=== PATIENT | female | born 1955 | race Caucasian/White ===

== ENCOUNTER 2017-08-26 08:27 | Inpatient (IN) | payer OTHER ==
[~2017-08-26] VITALS: Ht 157.5 cm; Wt 54.0 kg
[2017-08-26 08:29] VITALS: BP 131/65; PULSE 98; RESP 16; TEMP 99.7; O2SAT 97
[2017-08-26] MEDS ORDERED: ACCU20TA3 PO (08:47)
[2017-08-26] MEDS ORDERED: NAPR500T PO (08:47)
[2017-08-26] MEDS ORDERED: SODIUM CHLOR 0.9% 1000 ML INJ 1,000 ML IV SCH (08:59)
[2017-08-26] MEDS ORDERED: ONDANSETRON HCL 4 MG/2 ML VIAL IVP ONE (09:00)
[2017-08-26] MEDS ORDERED: MORPHINE SULFATE 4 MG/ML INJ IV PUSH ONE (09:00)
[2017-08-26 09:14] LABS: AUTOMATED NEUTROPHIL # 11.1 TH/MM3 (1.8-7.7); BASOPHIL % 0.2 % (0.0-2.0); BLOOD, URINE SMALL (NEG); EOSINOPHIL % 0.2 % (0.0-4.0); GLUCOSE,URINE NEG (NEG); HEMATOCRIT 41.6 % (35.0-46.0); HEMO FLAGS DIFF FINAL; KETONE, URINE 15 mg/dL (NEG); LYMPH % 6.1 % (9.0-44.0); LYMPHOCYTE # 0.8 TH/MM3 (1.0-4.8); MEAN CELL VOLUME 93.4 FL (80.0-100.0); MEAN CORPUSCULAR HEMOGLOBIN 31.6 PG (27.0-34.0); MEAN CORPUSCULAR HGB CONC 33.8 % (32.0-36.0); MONO % 8.1 % (0.0-8.0); NEUT % 85.4 % (16.0-70.0); NITRITE,URINE NEG (NEG); PH, URINE 5.5 (5.0-8.5); PLATELET COUNT 275 TH/MM3 (150-450); RED BLOOD COUNT 4.46 MIL/MM3 (4.00-5.30)
[2017-08-26 09:16] VITALS: O2SAT 97
[2017-08-26] MEDS ORDERED: DIATRIZOATE MEGLUM/DIATRIZOATE SOD 9 ML CUP ONE (09:17)
[2017-08-26 09:26] LABS: METHOD OF COLLECTION CLEAN CATCH; URINE COLOR YELLOW (YELLW/STRAW)
[2017-08-26 09:27] LABS: BACTERIA, URINE MOD /hpf; COMMENT (UR) CULTURE INDICATED; CULTURE IF INDICATED CULTURE INDICATED; HYALINE CAST, URINE 0-2 /lpf (RARE); SQUAMOUS EPITHELIAL CELL URINE > 8 /hpf (0-5); WBC, URINE 0-2 /hpf (0-5)
[2017-08-26 09:33] LABS: BLOOD UREA NITROGEN 17 MG/DL (7-18); GLOMERULAR FILTRATION RATE 56 ML/MIN (>89)
[2017-08-26 09:34] LABS: CHLORIDE 96 MEQ/L (98-107); POTASSIUM 3.6 MEQ/L (3.5-5.1); SODIUM (NA) 134 MEQ/L (136-145)
--- NOTE | 2017-08-26 09:44 | PD ---
HPI Chief Complaint: GI Complaint Time Seen by Provider: 08:48 Travel History International Travel<30 days: No Contact w/Intl Traveler<30days: No Traveled to known affect area: No History of Present Illness HPI This 62 year-old woman presents emergency Department with abdominal pain. She was well until yesterday when she began getting nonspecific epigastric abdominal pain and feeling a little bit unwell. She then has had multiple episodes of vomiting. Wasn't really sleep well last night because of throwing up and feeling sick. Abdominal pain has gotten worse as well. Last bowel movement was a couple days ago. She has a small bowel movement today. She thought she may have been constipated. Subjective fevers and chills. No urinary symptoms. No rash. Otherwise feeling well and healthy. She's had a hysterectomy with the incidental appendectomy with it, but no other abdominal surgeries. No sick contacts, recent antibiotic or healthcare exposures, or suspect foods. No travel. History Past Medical History Narrative Medical Arthritis, on plaquenil and Naprosyn Tetanus Vaccination: > 5 Years Influenza Vaccination: Yes Social History Alcohol Use: Yes (SOCIAL) Tobacco Use: Yes (11/16 PPD) Allergies-Medications (Allergen,Severity, Reaction): Coded Allergies: nitrofurantoin (Verified Allergy, Severe, rash, 08/26/17) Reported Meds & Prescriptions Reported Meds & Active Scripts Active Reported Accupril (Quinapril HCl) 20 Mg Tab 20 Mg PO DAILY Naproxen 500 Mg Tab 500 Mg PO BID Review of Systems Except as stated in HPI: all other systems reviewed are Neg Physical Exam Narrative GENERAL: This a 62 year-old woman, no acute distress. SKIN: Focused skin assessment warm/dry. HEAD: Atraumatic. Normocephalic. CARDIOVASCULAR: Regular rate and rhythm. No murmur appreciated. RESPIRATORY: No accessory muscle use. Clear to auscultation. Breath sounds equal bilaterally. GASTROINTESTINAL: Abdomen is flat and soft. She is minimal epigastric tenderness but fairly moderate left-sided tenderness with a little bit of voluntary guarding. No peritonitis. MUSCULOSKELETAL: No obvious deformities. No edema. NEUROLOGICAL: Awake and alert. No obvious cranial nerve deficits. Motor grossly within normal limits. Normal speech. Data Data Last Documented VS Vital Signs Date Time Temp Pulse Resp B/P (MAP) Pulse Ox O2 Delivery O2 Flow Rate FiO2 08/26/17 11:02 91 16 125/65 (85) 96 Room Air 08/26/17 08:29 99.7 Orders Orders Complete Blood Count With Diff (08/26/17 08:59) Comprehensive Metabolic Panel (08/26/17 08:59) Lipase (08/26/17 08:59) Urinalysis - C+S If Indicated (08/26/17 08:59) Ct Abd/Pel W Iv Contrast(Rout) (08/26/17 08:59) Iv Access Insert/Monitor (08/26/17 08:59) Oximetry (08/26/17 08:59) Morphine Inj (Morphine Inj) (08/26/17 09:00) Ondansetron Inj (Zofran Inj) (08/26/17 09:00) Sodium Chlor 0.9% 1000 Ml Inj (Ns 1000 M (08/26/17 08:59) Sodium Chloride 0.9% Flush (Ns Flush) (08/26/17 09:00) Oral Contrast - Adult (08/26/17 09:08) Diatrizoate Liq ( Gastroview Liq) (08/26/17 09:17) Urine Culture (08/26/17 09:05) Iohexol 350 Inj (Omnipaque 350 Inj) (08/26/17 10:20) Insert Ng Tube (08/26/17 10:47) Admit Order (Ed Use Only) (08/26/17 ) Vital Signs (Adult) Q4H (08/26/17 11:03) Diet Npo (08/26/17 Lunch) Activity Oob With Assistance (08/26/17 11:03) Notify Dr: Other (08/26/17 11:03) Labs Laboratory Tests Test 08/26/17 09:05 White Blood Count 13.0 TH/MM3 Red Blood Count 4.46 MIL/MM3 Hemoglobin 14.1 GM/DL Hematocrit 41.6 % Mean Corpuscular Volume 93.4 FL Mean Corpuscular Hemoglobin 31.6 PG Mean Corpuscular Hemoglobin Concent 33.8 % Red Cell Distribution Width 13.0 % Platelet Count 275 TH/MM3 Mean Platelet Volume 6.9 FL Neutrophils (%) (Auto) 85.4 % Lymphocytes (%) (Auto) 6.1 % Monocytes (%) (Auto) 8.1 % Eosinophils (%) (Auto) 0.2 % Basophils (%) (Auto) 0.2 % Neutrophils # (Auto) 11.1 TH/MM3 Lymphocytes # (Auto) 0.8 TH/MM3 Monocytes # (Auto) 1.1 TH/MM3 Eosinophils # (Auto) 0.0 TH/MM3 Basophils # (Auto) 0.0 TH/MM3 CBC Comment DIFF FINAL Differential Comment Urine Collection Type CLEAN CATCH Urine Color YELLOW Urine Turbidity SLIGHT Urine pH 5.5 Urine Specific [place] 1.027 Urine Protein 30 mg/dL Urine Glucose (UA) NEG mg/dL Urine Ketones 15 mg/dL Urine Occult Blood SMALL Urine Nitrite NEG Urine Bilirubin NEG Urine Leukocyte Esterase NEG Urine RBC 4-9 /hpf Urine WBC 0-2 /hpf Urine Squamous Epithelial Cells > 8 /hpf Urine Amorphous Sediment MOD Urine Bacteria MOD /hpf Urine Hyaline Casts 0-2 /lpf Urine Fine Granular Casts 0-2 /lpf Microscopic Urinalysis Comment CULTURE INDICATED Urine Collection Time 0905 Blood Urea Nitrogen 17 MG/DL Creatinine 1.00 MG/DL Random Glucose 110 MG/DL Total Protein 8.1 GM/DL Albumin 4.5 GM/DL Calcium Level 9.1 MG/DL Alkaline Phosphatase 52 U/L Aspartate Amino Transf (AST/SGOT) 26 U/L Alanine Aminotransferase (ALT/SGPT) 25 U/L Total Bilirubin 0.7 MG/DL Sodium Level 134 MEQ/L Potassium Level 3.6 MEQ/L Chloride Level 96 MEQ/L Carbon Dioxide Level 27.1 MEQ/L Anion Gap 11 MEQ/L Estimat Glomerular Filtration Rate 56 ML/MIN Lipase 163 U/L [facility] Medical Decision Making Medical Screen Exam Complete: Yes Emergency Medical Condition: Yes Interpretation(s) LABS: CBC mild leukocytosis CMP generally unremarkable. Lipase normal. UA unremarkable. Differential Diagnosis Diverticulitis, gastritis, infectious gastroenteritis, hepatobiliary disease, other Narrative Course Medical decision making This Is a 62 year-old woman presents to the emergency department with abdominal pain, nausea vomiting, with left-sided tenderness. She is a lot of vomiting and not much stool changes likely think she probably has diverticulitis. Gastritis seems less likely. I don't think she has hepatobiliary disease. We' ll check labs, CT imaging, urinalysis, reassess. FINAL: Patient was small bowel obstruction distal transition point. Spoke with Dr. Bower, Gen. surgery. He agrees with NG tube, admission to medicine. Diagnosis Primary Impression: Small bowel obstruction Nagi Stock MD Aug 26, 2017 09:44
[2017-08-26 10:02] LABS: ANION GAP 11 MEQ/L (5-15); BICARBONATE 27.1 MEQ/L (21.0-32.0)
[2017-08-26 10:05] LABS: ALT (GPT) 25 U/L (10-53); AST (GOT) 26 U/L (15-37)
[2017-08-26 10:07] LABS: TOTAL BILIRUBIN ADULT 0.7 MG/DL (0.2-1.0)
[2017-08-26 10:08] LABS: ALKALINE PHOSPHATASE 52 U/L (45-117)
[2017-08-26] MEDS ORDERED: IOHEXOL 350 MG/ML 10 ML VIAL (for RAD DIAG) IVCONTRAST ONE (10:20)
--- NOTE | 2017-08-26 10:44 | RADRPT ---
EXAM DATE/TIME: 08/26/2017 10:12 [facility] COMPARISON: No previous studies available for comparison. INDICATIONS : Abdominal pain and vomiting. IV CONTRAST: 96 cc Omnipaque 350 (iohexol) IV ORAL CONTRAST: Partial prescribed oral contrast ingested. RADIATION DOSE: 6.63 CTDIvol (mGy) MEDICAL HISTORY : None SURGICAL HISTORY : Hysterectomy. Appendectomy.Tonsillectomy. ENCOUNTER: Initial ACUITY: 2 days PAIN SCALE: 8/10 LOCATION: Bilateral mid abdomen. TECHNIQUE: Volumetric scanning of the abdomen and pelvis was performed. Using automated exposure control and ad justment of the mA and/or kV according to patient size, radiation dose was kept as low as reasonably achievable to obtain optimal diagnostic quality images. DICOM format image data is available electro nically for review and comparison. FINDINGS: LOWER LUNGS: The visualized lower lungs are clear. LIVER: Homogeneous density without lesion. There is no dilation of the biliary tree. No calcified gall[place] es. SPLEEN: Normal size without lesion. PANCREAS: Within normal limits. KIDNEYS: Normal in size and shape. There is no mass, stone or hydronephrosis. ADRENAL GLANDS: Within normal limits. VASCULAR: There is no aortic aneurysm. BOWEL/MESENTERY: There are multiple distended loops of small bowel throughout the abdomen. The distal small bowel the terminal ileum is nondilated. The colon is nondilated. There is stool throughout the colon. No free f luid or loculated fluid collections are demonstrated. These findings suggest a distal small bowel obs truction. ABDOMINAL WALL: Within normal limits. RETROPERITONEUM: There is no lymphadenopathy. BLADDER: No wall thickening or mass. REPRODUCTIVE: Within normal limits. INGUINAL: There is no lymphadenopathy or hernia. MUSCULOSKELETAL: Within normal limits for patient age. CONCLUSION: Multiple distended loops of small bowel throughout the abdomen with a transition zone in the distal s mall bowel near the terminal ileum. These findings indicate a distal small bowel obstruction. Ivan Yee MD on August 26, 2017 at 10:39 Board Certified Radiologist. This report was verified electronically.
[2017-08-26 11:02] VITALS: BP 125/65; PULSE 91; RESP 16; O2SAT 96
[2017-08-26 11:50] VITALS: BP 137/73; PULSE 88; RESP 20; TEMP 100.4; O2SAT 98
[2017-08-26] MEDS: NS + KCL 20 MEQ INJ 1,000 ML IV SCH ×2 (13:37→23:30)
--- NOTE | 2017-08-26 14:00 | HHI.HP ---
[facility] Darwin Poon MD Admission Diagnosis small bowel obstruction Diagnoses: (1) Systemic inflammatory response syndrome Diagnosis: Principal (2) Small bowel obstruction Diagnosis: Principal Chief Complaint: Abdominal pain Travel History International Travel<30 Days: No Contact w/Intl Traveler <30 Da: No Traveled to Known Affected Are: No Sepsis Criteria SIRS Criteria (2 or more): Heart rate over 90, WBC > 92124, < 4000 or > 10% bands History of Present Illness Written by Willy Snider, acting as scribe for Dr. Soto on 08/26/17 at 13: 50. 62-year-old female with known history of arthritis who presented to hospital because of abdominal pain, nausea vomiting. Patient states that she was in normal state of health with her chronic issues of intermittent constipation. She states it has been worse over the last 2 weeks with worsening constipation. She did take a Dulcolax yesterday. Yesterday approximately at 11:30 AM she started developing abdominal pain in the mid abdomen, she did have lunch that consisted of lettuce and some grapes. She states that the pain progressively got worse up until 4 PM when she started having nausea and vomiting. She states that she was unable to eat anything after that. However continued drinking water. She states that the only thing that she was vomiting up with yellow clear fluid. the pain started at 11:30 AM at 2/10 on a pain scale and by the evening the pain was 9/10 on a pain scale. The pain initially started in the mid abdomen but continued to go higher up until it was in the epigastric region. She started having abdominal distention this morning. She states that she continued to have vomiting throughout the evening in because she could not stop she came to the hospital for evaluation. Patient states that she did have a fever of 99.8. There was significant dizziness whenever she stood removed. She denied any hematemesis, coffee- ground emesis. Patient states that she did have a bowel movement last night which was solid. She denied any hematochezia or melena. Patient came to the hospital for evaluation had CT scan performed which did indicate small bowel obstruction. Patient was recommended admission for further evaluation and management. Review of Systems Gastrointestinal: COMPLAINS OF: Abdominal pain, Constipation, Nausea, Vomiting Except as stated in HPI: all other systems reviewed are Neg Past Family Social History Past Medical History Arthritis Past Surgical History Hysterectomy Appendectomy Tonsillectomy Reported Medications Reported Meds & Active Scripts Active Reported Accupril (Quinapril HCl) 20 Mg Tab 20 Mg PO DAILY Naproxen 500 Mg Tab 500 Mg PO BID Allergies: Coded Allergies: nitrofurantoin (Verified Allergy, Severe, rash, 08/26/17) Family History Reviewed and significant for father with TB, mother from embolism Social History Patient continues to smoke a proctoscopy 5 cigarettes daily since she was 32 years old. She does drink alcohol occasionally. Denies any illicit drugs Physical Exam Vital Signs Vital Signs Date Time Temp Pulse Resp B/P (MAP) Pulse Ox O2 Delivery O2 Flow Rate FiO2 08/26/17 11:50 100.4 88 20 137/73 (94) 98 08/26/17 11:48 08/26/17 11:02 91 16 125/65 (85) 96 Room Air 08/26/17 09:16 97 Room Air 08/26/17 08:29 99.7 98 16 131/65 (87) 97 Physical Exam GENERAL: Well-developed, well-nourished, in no acute distress. alert and orientated HEENT: Head is normocephalic without any lesions or masses noted. Facial features are symmetric. Eyes: Pupils equal round reactive to light. Extraocular muscles are intact. Conjunctivae were clear. Oropharyngeal: Pharynx without any erythema edema. Tongue is midline without deviation. Buccal mucosa is moist without any masses or lesions. NG tube noted with clear yellow fluid NECK: Supple without any masses. Trachea midline no deviation. No JVD, no bruits are appreciated CARDIAC: Regular rhythm, regular rate. S1/S2 are heard. No murmurs gallops or rubs. LUNGS: Clear to auscultation bilaterally. No wheeze, rhonchi or rales. No use of accessory muscles on inspiration or expiration. ABDOMEN: Soft, nontender. Nondistended. Diminished bowel sounds in all 4 quadrants. No organomegaly or masses. Negative rebound, negative guarding EXTREMITIES: No edema, pulses are equal bilaterally. No cyanosis or clubbing NEUROLOGY: Mood and affect appear appropriate. Cranial nerves II through XII grossly intact. Muscle strength 5/5 in upper and lower extremities bilaterally. Deep tendon reflexes are 2+ in upper and lower extremities bilaterally. Laboratory Laboratory Tests Test 08/26/17 09:05 White Blood Count 13.0 Red Blood Count 4.46 Hemoglobin 14.1 Hematocrit 41.6 Mean Corpuscular Volume 93.4 Mean Corpuscular Hemoglobin 31.6 Mean Corpuscular Hemoglobin Concent 33.8 Red Cell Distribution Width 13.0 Platelet Count 275 Mean Platelet Volume 6.9 Neutrophils (%) (Auto) 85.4 Lymphocytes (%) (Auto) 6.1 Monocytes (%) (Auto) 8.1 Eosinophils (%) (Auto) 0.2 Basophils (%) (Auto) 0.2 Neutrophils # (Auto) 11.1 Lymphocytes # (Auto) 0.8 Monocytes # (Auto) 1.1 Eosinophils # (Auto) 0.0 Basophils # (Auto) 0.0 CBC Comment DIFF FINAL Differential Comment Urine Collection Type CLEAN CATCH Urine Color YELLOW Urine Turbidity SLIGHT Urine pH 5.5 Urine Specific [place] 1.027 Urine Protein 30 Urine Glucose (UA) NEG Urine Ketones 15 Urine Occult Blood SMALL Urine Nitrite NEG Urine Bilirubin NEG Urine Leukocyte Esterase NEG Urine RBC 4-9 Urine WBC 0-2 Urine Squamous Epithelial Cells > 8 Urine Amorphous Sediment MOD Urine Bacteria MOD Urine Hyaline Casts 0-2 Urine Fine Granular Casts 0-2 Microscopic Urinalysis Comment CULTURE INDICATED Urine Collection Time 0905 Blood Urea Nitrogen 17 Creatinine 1.00 Random Glucose 110 Total Protein 8.1 Albumin 4.5 Calcium Level 9.1 Alkaline Phosphatase 52 Aspartate Amino Transf (AST/SGOT) 26 Alanine Aminotransferase (ALT/SGPT) 25 Total Bilirubin 0.7 Sodium Level 134 Potassium Level 3.6 Chloride Level 96 Carbon Dioxide Level 27.1 Anion Gap 11 Estimat Glomerular Filtration Rate 56 Lipase 163 Date/Time Source Procedure Growth Status 08/26/17 09:05 Urine Clean Catch Urine Culture Pending Received Result Diagram: 08/26/1790408/26/17 09 Imaging Last Impressions Abdomen/Pelvis CT 08/26/17 0859 Signed Impressions: Service Date/Time: Saturday, August 26, 2017 10:12 - CONCLUSION: Multiple distended loops of small bowel throughout the abdomen with a transition zone in the distal small bowel near the terminal ileum. These findings indicate a distal small bowel obstruction. vIan Yee MD Capade VTE Risk Assessment Caprini VTE Risk Assessment: Mod/High Risk (score >= 2) Caprini Risk Assessment Model Point Value = 1 Point Value = 2 Point Value = 3 Point Value = 5 Age 41-60 Minor surgery BMI > 25 kg/m2 Swollen legs Varicose veins or History of unexplained or recurrent spontaneous Oral contraceptives or hormone replacement Sepsis (< 1 month) Serious lung disease, including pneumonia (< 1 month) Abnormal pulmonary function Acute myocardial infarction Congestive heart failure (< 1 month) History of inflammatory bowel disease Medical patient at bed rest Age 61-74 Arthroscopic surgery Major open surgery (> 45 min) Laparoscopic surgery (> 45 min) Malignancy Confined to bed (> 72 hours) Immobilizing plaster cast Central venous access Age >= 75 History of VTE Family history of VTE Factor V Leiden Prothrombin [id number] Lupus anticoagulant Anticardiolipin antibodies Elevated serum homocysteine Heparin-induced thrombocytopenia Other congenital or acquired thrombophilia Stroke (< 1 month) Elective arthroplasty Hip, pelvis, or leg fracture Acute spinal cord injury (< 1 month) Prophylaxis Regimen Total Risk Factor Score Risk Level Prophylaxis Regimen 0-1 Low Early ambulation 2 Moderate Order ONE of the following: *Sequential Compression Device (SCD) *Heparin 5000 units SQ BID 3-4 Higher Order ONE of the following medications: *Heparin 5000 units SQ TID *Enoxaparin/Lovenox 40 mg SQ daily (WT < 150 kg, CrCl > 30 mL/min) *Enoxaparin/Lovenox 30 mg SQ daily (WT < 150 kg, CrCl > 10-29 mL/min) *Enoxaparin/Lovenox 30 mg SQ BID (WT < 150 kg, CrCl > 30 mL/min) AND/OR *Sequential Compression Device (SCD) 5 or more Highest Order ONE of the following medications: *Heparin 5000 units SQ TID (Preferred with Epidurals) *Enoxaparin/Lovenox 40 mg SQ daily (WT < 150 kg, CrCl > 30 mL/min) *Enoxaparin/Lovenox 30 mg SQ daily (WT < 150 kg, CrCl > 10-29 mL/min) *Enoxaparin/Lovenox 30 mg SQ BID (WT < 150 kg, CrCl > 30 mL/min) AND *Sequential Compression Device (SCD) Assessment and Plan Assessment and Plan Systemic inflammatory response syndrome Patient meets criteria with tachycardia, leukocytosis, likely secondary to small bowel obstruction Continue monitor for acute infection Small bowel obstruction CT scan does show multiple distended loops of small bowel throughout the abdomen with transition zone in the distal small bowel near the terminal ileum Keep nothing by mouth, continue IV fluids, pain control NG tube to low intermittent wall suction Follow KUB for resolution DVT prevention Sequential compression devices Physician Certification 2 Midnight Certification Type: Admission for Inpatient Services Order for Inpatient Services The services are ordered in accordance with Medicare regulations or non- Medicare payer requirements, as applicable. In the case of services not specified as inpatient-only, they are appropriately provided as inpatient services in accordance with the 2-midnight benchmark. Estimated LOS (days): 3 days is the estimated time the patient will need to remain in the hospital, assuming treatment plan goals are met and no additional complications. Post-Hospital Plan: Home Willy Snider Aug 26, 2017 14:00 Kimberly Soto MD Aug 26, 2017 14:01
[2017-08-26 15:43] VITALS: BP 142/67; PULSE 79; RESP 20; TEMP 99.8; O2SAT 96
[2017-08-26] MEDS: MORPHINE SULFATE 4 MG/ML INJ IV PUSH PRN (16:20)
[2017-08-26] MEDS: METOCLOPRAMIDE HCL 10 MG/2 ML VIAL IV PUSH SCH ×2 (18:00→23:30)
[2017-08-26 20:09] VITALS: BP 136/69; PULSE 92; RESP 12; TEMP 100.4; O2SAT 94
[2017-08-26] MEDS: ACETAMINOPHEN 650 MG SUPP RECTAL PRN (20:39)
[2017-08-26] MEDS ORDERED: FAMOTIDINE 20 MG/2 ML VIAL IV PUSH SCH (21:00)
[2017-08-27 00:19] VITALS: BP 130/70; PULSE 79; RESP 12; TEMP 99.6; O2SAT 93
[2017-08-27] MEDS: METOCLOPRAMIDE HCL 10 MG/2 ML VIAL IV PUSH SCH ×3 (05:52→17:39)
[2017-08-27 07:10] LABS: AUTOMATED NEUTROPHIL # 12.1 TH/MM3 (1.8-7.7); BASOPHIL % 0.1 % (0.0-2.0); HEMATOCRIT 38.4 % (35.0-46.0); HEMO FLAGS DIFF FINAL; LYMPH % 4.3 % (9.0-44.0); LYMPHOCYTE # 0.6 TH/MM3 (1.0-4.8); MEAN CORPUSCULAR HEMOGLOBIN 32.2 PG (27.0-34.0); MEAN CORPUSCULAR HGB CONC 34.6 % (32.0-36.0); NEUT % 87.6 % (16.0-70.0); PLATELET COUNT 237 TH/MM3 (150-450); RED BLOOD COUNT 4.13 MIL/MM3 (4.00-5.30); WHITE BLOOD COUNT 13.8 TH/MM3 (4.0-11.0)
[2017-08-27 07:11] LABS: POTASSIUM 4.1 MEQ/L (3.5-5.1)
[2017-08-27 07:16] LABS: BICARBONATE 26.2 MEQ/L (21.0-32.0)
[2017-08-27] MEDS: NS + KCL 20 MEQ INJ 1,000 ML IV SCH ×2 (07:41→20:08)
[2017-08-27 07:50] VITALS: BP 150/82; PULSE 81; RESP 20; TEMP 99.1; O2SAT 95
--- NOTE | 2017-08-27 08:18 | MB ---
cc: [facility] DATE OF CONSULTATION: 08/27/2017 REASON FOR CONSULTATION: Small bowel obstruction. REQUESTING PHYSICIAN: Dr. Soto. HISTORY OF PRESENT ILLNESS: The patient is a 62-year-old female who was admitted to [facility] with possible bowel obstruction. The patient states she was in her normal state of health but she developed increasing abdominal pain, nausea and vomiting over the last 24 hours. The patient says she has had some increasing constipation over the two weeks prior to this and when she took Dulcolax yesterday she had increasing abdominal pain and cramping. The patient states that she did pass gas with bowel movements three days ago. The patient was admitted. An NG tube was placed. CT scan was ordered and showed multiple loops of small bowel with possible transition point. Over the last several hours, the patient has had slight improvement in her pain and less NG tube output. The patient has never had previous bowel obstruction and her only previous surgery is open hysterectomy and oophorectomy through Pfannenstiel incision. REVIEW OF SYSTEMS: 12-point review of systems conducted with the patient and is negative except for the pertinent positives mentioned above in the history of present illness. PAST MEDICAL HISTORY: Arthritis. PAST SURGICAL HISTORY: Hysterectomy. Oophorectomy with appendectomy at the time of the hysterectomy. ALLERGIES: Nitrofurantoin HOME MEDICATIONS: 1. Accupril. 2. Naproxen. FAMILY HISTORY: Noncontributory. SOCIAL HISTORY: The patient does smoke approximately five cigarettes a day. She occasionally uses alcohol. She denies illicit drug use. PHYSICAL EXAMINATION: VITAL SIGNS: Temperature 100.4 degrees. Heart rate 92, blood pressure 136/69. O2 saturation 94%. GENERAL: The patient is a thin female in no acute distress. Head: Normocephalic, atraumatic. Pupils round and reactive to light and accommodation. Sclerae is anicteric. Oral cavity is clear. Airway is patent. Neck: Supple. No JVD. Lungs: Clear to auscultation bilaterally. Nonlabored breathing pattern. Heart: Regular rhythm. No murmurs. Abdomen: Shows hypoactive bowel sounds with mild distension. She is tympanic, Pfannenstiel incision, no hernias. No ascites, no organomegaly. No masses appreciated, some tenderness on the right side of the abdomen without focal peritonitis or guarding. Extremities: No clubbing, cyanosis or edema. Back: No CVA tenderness. Neurologic: The patient is awake, alert, oriented x3, moving all extremities. Cranial nerves II-XII are grossly intact. ASSESSMENT/PLAN The patient is a 62-year-old female with small bowel obstruction versus ileus. The patient likely does have a low grade small bowel obstruction due to previous pelvic surgery. The patient is clinically stable and I agree with nonoperative management, initially for small bowel obstruction. If the patient has decreasing pain and passage of flatus consistently with her current low NG tube output, she may be able to undergo discontinuation of her NG tube in about 12 to 24 hours with a trial of clear liquids. Will continue to follow this patient with serial physical exams. Thank you for the consultation. Will follow along with the patient. MD IVÁN Palm/MACHO /1:35 AM /7:57 AM
[2017-08-27] MEDS ORDERED: FAMOTIDINE 20 MG/2 ML VIAL IV PUSH SCH (09:00)
--- NOTE | 2017-08-27 10:42 | RADRPT ---
EXAM DATE/TIME: 08/27/2017 10:20 [facility] COMPARISON: CT ABDOMEN & PELVIS W CONTRAST, August 26, 2017, 10:12. INDICATIONS : Abdominal pain left side and tender to touch. MEDICAL HISTORY : None. SURGICAL HISTORY : Hysterectomy. Appendectomy.Tonsillectomy ENCOUNTER: Initial ACUITY: 2 days PAIN SCORE: 5/10 LOCATION: Left lower FINDINGS: Supine and upright views of the abdomen were performed. There is an NG tube in the stomach. There con tinue to be multiple distended loops of small bowel with air-fluid levels. No free air is seen. The c olon is nondilated. The lung bases are grossly clear. The bony structures are grossly intact.. CONCLUSION: 1. NG tube in the stomach. 2. There continues to be multiple dilated loops of small bowel with air-fluid levels characteristic o f a distal small bowel obstruction. Ivan Yee MD on August 27, 2017 at 10:39 Board Certified Radiologist. This report was verified electronically.
[2017-08-27 11:52] VITALS: BP 142/77; PULSE 76; RESP 20; TEMP 99.8; O2SAT 96
[2017-08-27 15:00] VITALS: BP 143/79; PULSE 85; RESP 20; TEMP 100; O2SAT 95
--- NOTE | 2017-08-27 17:30 | HHI.PR ---
Subjective Remarks No nausea or vomiting, abdominal discomfort 2 out of 10, NG tube suctioning 600 cc so far in the bucket Objective Vitals Vital Signs Date Time Temp Pulse Resp B/P (MAP) Pulse Ox O2 Delivery O2 Flow Rate FiO2 08/27/17 15:00 100.0 85 20 143/79 (100) 95 08/27/17 11:52 99.8 76 20 142/77 (98) 96 08/27/17 07:50 99.1 81 20 150/82 (104) 95 08/27/17 00:19 99.6 79 12 130/70 (90) 93 08/26/17 20:09 100.4 92 12 136/69 (91) 94 I/O 08/26/17 08/26/17 08/26/17 08/27/17 08/27/17 08/27/17 07:00 15:00 23:00 07:00 15:00 23:00 Intake Total 1000 ml 0 ml 903 ml Output Total 600 ml 350 ml Balance 1000 ml 0 ml 303 ml -350 ml Intake Oral 0 ml IV Total 1000 ml 903 ml Output Gastric Drainage Total 400 ml 350 ml Emesis 200 ml # Voids 2 # Bowel Movements 0 Result Diagram: 08/27/1714 08/27/17613 Objective Remarks GENERAL: This is a well-nourished, well-developed patient, in no apparent distress. SKIN: No rashes, warm and dry HEAD: Atraumatic. Normocephalic. EYES: Pupils equal round and reactive. Extraocular motions intact. No scleral icterus. ENT: Nose without bleeding, or drainage, Airway patent. NECK: Trachea midline. Supple CARDIOVASCULAR: Regular rate and rhythm without murmurs, gallops, or rubs. RESPIRATORY: Fair air entry bilaterally. No wheezes, rales, or rhonchi. GASTROINTESTINAL: Abdomen soft, non-tender, nondistended. Positive bowel sounds MUSCULOSKELETAL: Extremities without clubbing, cyanosis, or edema. Pedal pulses appreciated NEUROLOGICAL: Awake and alert. Moves all extremity. Normal speech.no focal neurological deficit A/P Problem List: (1) Systemic inflammatory response syndrome ICD Code: R65.10 - Systemic inflammatory response syndrome (SIRS) of non- infectious origin without acute organ dysfunction (2) Small bowel obstruction ICD Code: K56.609 - Unspecified intestinal obstruction, unspecified as to partial versus complete obstruction Status: Acute Assessment and Plan Febrile illness with temperature max 100.4 Systemic inflammatory response syndrome Patient meets criteria with tachycardia, leukocytosis, likely secondary to small bowel obstruction Small bowel obstruction Check blood culture,Continue monitor for acute infection CT scan does show multiple distended loops of small bowel throughout the abdomen with transition zone in the distal small bowel near the terminal ileum Keep nothing by mouth, continue IV fluids, pain control NG tube to low intermittent wall suction Follow KUB for resolution Appreciate general surgery consultation DVT prevention Sequential compression devices Kimberly Soto MD Aug 27, 2017 17:30
[2017-08-27] MEDS ORDERED: SODIUM CHLORIDE 0.65% NASAL SPRAY 45 ML BTL PRN (18:00)
[2017-08-27] MEDS: FLUTICASONE PROPIONATE 50 MCG/ACT 16 GM NASAL SPRAY SCH (18:00)
[2017-08-27] MEDS ORDERED: ENALAPRILAT 1.25 MG/ML VIAL IV PUSH PRN (18:00)
[2017-08-27] MEDS: LISINOPRIL 20 MG TAB PO SCH (20:07)
[2017-08-27 20:09] VITALS: BP 143/73; PULSE 84; RESP 16; TEMP 100.1; O2SAT 95
[2017-08-27] MEDS: FAMOTIDINE 20 MG/2 ML VIAL IV PUSH SCH (20:09)
[2017-08-28 00:09] VITALS: BP 126/76; PULSE 87; RESP 16; TEMP 100.1; O2SAT 94
[2017-08-28] MEDS: METOCLOPRAMIDE HCL 10 MG/2 ML VIAL IV PUSH SCH ×4 (00:41→17:07)
[2017-08-28] MEDS: NS + KCL 20 MEQ INJ 1,000 ML IV SCH ×2 (05:50→16:11)
[2017-08-28 08:00] VITALS: BP 144/83; PULSE 84; RESP 16; TEMP 100.3; O2SAT 98
[2017-08-28] MEDS: FAMOTIDINE 20 MG/2 ML VIAL IV PUSH SCH ×2 (08:03→21:08)
[2017-08-28] MEDS: FLUTICASONE PROPIONATE 50 MCG/ACT 16 GM NASAL SPRAY SCH (08:03)
[2017-08-28] MEDS: LISINOPRIL 20 MG TAB PO SCH (08:04)
[2017-08-28 10:59] LABS: AUTOMATED NEUTROPHIL # 13.7 TH/MM3 (1.8-7.7); BASOPHIL % 0.2 % (0.0-2.0); EOSINOPHIL # 0.1 TH/MM3 (0-0.4); EOSINOPHIL % 0.5 % (0.0-4.0); HEMATOCRIT 35.3 % (35.0-46.0); LYMPH % 3.1 % (9.0-44.0); LYMPHOCYTE # 0.5 TH/MM3 (1.0-4.8); MEAN CELL VOLUME 92.6 FL (80.0-100.0); MEAN CORPUSCULAR HEMOGLOBIN 31.7 PG (27.0-34.0); MEAN CORPUSCULAR HGB CONC 34.2 % (32.0-36.0); MONO % 7.3 % (0.0-8.0); NEUT % 88.9 % (16.0-70.0); PLATELET COUNT 232 TH/MM3 (150-450); RED BLOOD COUNT 3.81 MIL/MM3 (4.00-5.30); RED CELL DISTRIBUTION WIDTH 12.7 % (11.6-17.2); WHITE BLOOD COUNT 15.4 TH/MM3 (4.0-11.0)
[2017-08-28 11:01] LABS: HEMO FLAGS DIFF FINAL
[2017-08-28 11:31] LABS: WESTERGREN SEDIMENTATION RATE 68 mm/hr (0-30)
[2017-08-28 12:00] VITALS: BP 130/63; PULSE 86; RESP 20; TEMP 98.3; O2SAT 96
--- NOTE | 2017-08-28 14:05 | HHI.PR ---
Subjective Remarks Patient reported moving one bowel movement and passing gas , still having the NG tube suctioning she had left a fever low grade 100.3, she reported history of chronic sinusitis which might be worsening with the NG tube in the reason for her low-grade fever , she told me she usually antibiotic to improve it Otherwise patient stable no abdominal pain Objective Vitals Vital Signs Date Time Temp Pulse Resp B/P (MAP) Pulse Ox O2 Delivery O2 Flow Rate FiO2 08/28/17 12:00 98.3 86 20 130/63 (85) 96 08/28/17 08:00 100.3 84 16 144/83 (103) 98 08/28/17 00:09 100.1 87 16 126/76 (93) 94 08/27/17 20:09 100.1 84 16 143/73 (96) 95 08/27/17 15:00 100.0 85 20 143/79 (100) 95 I/O 08/27/17 08/27/17 08/27/17 08/28/17 08/28/17 08/28/17 07:00 15:00 23:00 07:00 15:00 23:00 Intake Total 903 ml Output Total 600 ml 350 ml 300 ml Balance 303 ml -350 ml -300 ml IV Total 903 ml Output Gastric Drainage Total 400 ml 350 ml 300 ml Emesis 200 ml # Voids 3 1 # Bowel Movements 0 Result Diagram: 08/28/17 1054 08/27/17 0614 Objective Remarks GENERAL: This is a well-nourished, well-developed patient, in no apparent distress. SKIN: No rashes, warm and dry HEAD: Atraumatic. Normocephalic. EYES: Pupils equal round and reactive. Extraocular motions intact. No scleral icterus. ENT: Nose without bleeding, or drainage, Airway patent. NECK: Trachea midline. Supple CARDIOVASCULAR: Regular rate and rhythm without murmurs, gallops, or rubs. RESPIRATORY: Fair air entry bilaterally. No wheezes, rales, or rhonchi. GASTROINTESTINAL: Abdomen soft, non-tender, nondistended. Positive bowel sounds MUSCULOSKELETAL: Extremities without clubbing, cyanosis, or edema. Pedal pulses appreciated NEUROLOGICAL: Awake and alert. Moves all extremity. Normal speech.no focal neurological deficit A/P Problem List: (1) Systemic inflammatory response syndrome ICD Code: R65.10 - Systemic inflammatory response syndrome (SIRS) of non- infectious origin without acute organ dysfunction (2) Small bowel obstruction ICD Code: K56.609 - Unspecified intestinal obstruction, unspecified as to partial versus complete obstruction Status: Acute Assessment and Plan Febrile illness with temperature max 100.4> workup is negative, possibly sinusitis worsened with the NG tube Systemic inflammatory response syndrome Patient meets criteria with tachycardia, leukocytosis, likely secondary to small bowel obstruction Small bowel obstruction Follow blood culture still negative, CT abdomen no signs of infection,.we'll start Augmentin for sinus infection CT scan does show multiple distended loops of small bowel throughout the abdomen with transition zone in the distal small bowel near the terminal ileum Keep nothing by mouth, continue IV fluids, pain control NG tube to low intermittent wall suction Follow KUB for resolution Appreciate general surgery consultation DVT prevention Sequential compression devices Kimberly Soto MD Aug 28, 2017 14:05
--- NOTE | 2017-08-28 15:33 | HHI.PR ---
Subjective Subjective Notes no new c/o, still no flatus or BM Objective Vitals/I&O Vital Signs Date Time Temp Pulse Resp B/P (MAP) Pulse Ox O2 Delivery O2 Flow Rate FiO2 08/28/17 12:00 98.3 86 20 130/63 (85) 96 08/26/17 11:02 Room Air Labs Laboratory Tests Test 08/28/17 10:54 White Blood Count 15.4 Red Blood Count 3.81 Hemoglobin 12.1 Hematocrit 35.3 Mean Corpuscular Volume 92.6 Mean Corpuscular Hemoglobin 31.7 Mean Corpuscular Hemoglobin Concent 34.2 Red Cell Distribution Width 12.7 Platelet Count 232 Mean Platelet Volume 6.5 Neutrophils (%) (Auto) 88.9 Lymphocytes (%) (Auto) 3.1 Monocytes (%) (Auto) 7.3 Eosinophils (%) (Auto) 0.5 Basophils (%) (Auto) 0.2 Neutrophils # (Auto) 13.7 Lymphocytes # (Auto) 0.5 Monocytes # (Auto) 1.1 Eosinophils # (Auto) 0.1 Basophils # (Auto) 0.0 CBC Comment DIFF FINAL Differential Comment Erythrocyte Sedimentation Rate 68 C-Reactive Protein 23.00 Date/Time Source Procedure Growth Status 08/27/17 18:08 Blood Peripheral Aerobic Blood Culture - Preliminary NO GROWTH IN 1 DAY Resulted 08/27/17 18:08 Blood Peripheral Anaerobic Blood Culture - Preliminary NO GROWTH IN 1 DAY Resulted 08/26/17 09:05 Urine Clean Catch Urine Culture - Final 50-100,000 CFU/ML MIXED GRAM POSITIVE... Complete Abdomen: Non-tender A/P Assessment and Plan 62yo female with adhesive SBO, stable. continue IVF, bowel rest, OOB. d/w patient, continue non-op mgmt, surgery if not resolved by later this week. Gee Bower MD Aug 28, 2017 15:33
[2017-08-28 16:00] VITALS: BP 134/67; PULSE 80; RESP 18; TEMP 99.8; O2SAT 94
[2017-08-28 20:00] VITALS: BP 163/72; PULSE 84; RESP 18; TEMP 99.5; O2SAT 95
[2017-08-28] MEDS ORDERED: AMOXICILLIN/CLAVULANATE K 875 MG TAB PO SCH (21:00)
[2017-08-28] MEDS: SODIUM CHLORIDE 0.9% FLUSH 10 ML FLUSH IV FLUSH PRN ×2 (21:09→22:16)
[2017-08-28] MEDS: MORPHINE SULFATE 4 MG/ML INJ IV PUSH PRN (22:16)
[2017-08-29] VITALS: BP 145/77; PULSE 86; RESP 18; TEMP 99.6; O2SAT 94
[2017-08-29] MEDS: METOCLOPRAMIDE HCL 10 MG/2 ML VIAL IV PUSH SCH ×4 (01:06→17:45)
[2017-08-29] MEDS: SODIUM CHLORIDE 0.9% FLUSH 10 ML FLUSH IV FLUSH PRN (01:06)
[2017-08-29] MEDS: NS + KCL 20 MEQ INJ 1,000 ML IV SCH ×3 (01:07→20:33)
[2017-08-29 04:00] VITALS: BP 143/86; PULSE 93; RESP 20; TEMP 99.4; O2SAT 94
[2017-08-29 06:34] LABS: AUTOMATED NEUTROPHIL # 7.1 TH/MM3 (1.8-7.7); BASOPHIL % 0.1 % (0.0-2.0); EOSINOPHIL % 0.5 % (0.0-4.0); HEMATOCRIT 32.4 % (35.0-46.0); LYMPH % 5.9 % (9.0-44.0); LYMPHOCYTE # 0.5 TH/MM3 (1.0-4.8); MEAN CELL VOLUME 94.2 FL (80.0-100.0); MEAN CORPUSCULAR HEMOGLOBIN 32.7 PG (27.0-34.0); MEAN CORPUSCULAR HGB CONC 34.7 % (32.0-36.0); MONO % 10.6 % (0.0-8.0); NEUT % 82.9 % (16.0-70.0); PLATELET COUNT 230 TH/MM3 (150-450); RED BLOOD COUNT 3.43 MIL/MM3 (4.00-5.30); RED CELL DISTRIBUTION WIDTH 13.3 % (11.6-17.2); WHITE BLOOD COUNT 8.5 TH/MM3 (4.0-11.0)
[2017-08-29 06:36] LABS: HEMO FLAGS DIFF FINAL
[2017-08-29 08:00] VITALS: BP 145/74; PULSE 88; RESP 19; TEMP 99.4; O2SAT 92
[2017-08-29] MEDS: ACETAMINOPHEN 650 MG SUPP RECTAL PRN (09:54)
[2017-08-29] MEDS: LISINOPRIL 20 MG TAB NG SCH (09:54)
[2017-08-29] MEDS: FAMOTIDINE 20 MG/2 ML VIAL IV PUSH SCH ×2 (09:55→20:32)
[2017-08-29] MEDS: FLUTICASONE PROPIONATE 50 MCG/ACT 16 GM NASAL SPRAY SCH (09:55)
[2017-08-29 12:00] VITALS: BP 143/92; PULSE 84; RESP 20; TEMP 99.6; O2SAT 95
--- NOTE | 2017-08-29 12:02 | HHI.PR ---
Subjective Remarks Patient seen and evaluated today in follow-up for abdominal pain and small bowel obstruction, bowel movement 2 with improved flatus. NG tube output has greatly improved with repositioning of 2. Patient felt much better. Objective Vitals Vital Signs Date Time Temp Pulse Resp B/P (MAP) Pulse Ox O2 Delivery O2 Flow Rate FiO2 08/29/17 08:00 99.4 88 19 145/74 (97) 92 08/29/17 04:00 99.4 93 20 143/86 (105) 94 08/29/17 00:00 99.6 86 18 145/77 (99) 94 08/28/17 23:16 18 08/28/17 20:00 99.5 84 18 163/72 (102) 95 08/28/17 16:00 99.8 80 18 134/67 (89) 94 I/O 08/28/17 08/28/17 08/28/17 08/29/17 08/29/17 08/29/17 07:00 15:00 23:00 07:00 15:00 23:00 Intake Total 0 ml 1300 ml 1500 ml Output Total 300 ml 1350 ml 800 ml Balance -300 ml 0 ml -50 ml 700 ml Intake Oral 0 ml 300 ml 0 ml IV Total 1000 ml 1500 ml Output Urine Total 750 ml Gastric Drainage Total 300 ml 600 ml 800 ml # Voids 1 3 2 # Bowel Movements 1 0 Result Diagram: 08/29/17 0555 08/27/17 0614 Imaging Last Impressions Abdomen X-Ray 08/27/17 0000 Signed Impressions: Service Date/Time: Sunday, August 27, 2017 10:20 - CONCLUSION: 1. NG tube in the stomach. 2. There continues to be multiple dilated loops of small bowel with air-fluid levels characteristic of a distal small bowel obstruction. Ivan Yee MD Abdomen/Pelvis CT 08/26/17 0859 Signed Impressions: Service Date/Time: Saturday, August 26, 2017 10:12 - CONCLUSION: Multiple distended loops of small bowel throughout the abdomen with a transition zone in the distal small bowel near the terminal ileum. These findings indicate a distal small bowel obstruction. Ivan Yee MD Objective Remarks NG tube in place GENERAL: This is a well-nourished, well-developed patient, in no apparent distress. CARDIOVASCULAR: Regular rate and rhythm without murmurs, gallops, or rubs. RESPIRATORY: Clear to auscultation. Breath sounds equal bilaterally. No wheezes , rales, or rhonchi. GASTROINTESTINAL: Abdomen soft, non-tender, nondistended. Hypoactive bowel sounds MUSCULOSKELETAL: Extremities without clubbing, cyanosis, or edema. NEURO: Alert & Oriented x4 to person, place, time, situation. Moves all ext x4 A/P Problem List: (1) Small bowel obstruction ICD Code: K56.609 - Unspecified intestinal obstruction, unspecified as to partial versus complete obstruction Status: Acute Plan: Somewhat improved with NG output and with bowel function appears to have returned. We'll follow up x-rays today. General surgery consult appreciated if patient continues to improve likely DC NG tube and try with clear liquids later today Discharge Planning Home pending improvement of bowel function Lissa Hutson MD Aug 29, 2017 12:02
--- NOTE | 2017-08-29 13:56 | HHI.PR ---
Subjective Subjective Notes Resting in bed No issues Thirsty Objective Vitals/I&O Vital Signs Date Time Temp Pulse Resp B/P (MAP) Pulse Ox O2 Delivery O2 Flow Rate FiO2 08/29/17 12:00 99.6 84 20 143/92 (109) 95 08/26/17 11:02 Room Air Labs Laboratory Tests Test 08/29/17 05:55 White Blood Count 8.5 Red Blood Count 3.43 Hemoglobin 11.2 Hematocrit 32.4 Mean Corpuscular Volume 94.2 Mean Corpuscular Hemoglobin 32.7 Mean Corpuscular Hemoglobin Concent 34.7 Red Cell Distribution Width 13.3 Platelet Count 230 Mean Platelet Volume 7.1 Neutrophils (%) (Auto) 82.9 Lymphocytes (%) (Auto) 5.9 Monocytes (%) (Auto) 10.6 Eosinophils (%) (Auto) 0.5 Basophils (%) (Auto) 0.1 Neutrophils # (Auto) 7.1 Lymphocytes # (Auto) 0.5 Monocytes # (Auto) 0.9 Eosinophils # (Auto) 0.0 Basophils # (Auto) 0.0 CBC Comment DIFF FINAL Differential Comment Date/Time Source Procedure Growth Status 08/27/17 18:08 Blood Peripheral Aerobic Blood Culture - Preliminary NO GROWTH IN 2 DAYS Resulted 08/27/17 18:08 Blood Peripheral Anaerobic Blood Culture - Preliminary NO GROWTH IN 2 DAYS Resulted 08/26/17 09:05 Urine Clean Catch Urine Culture - Final 50-100,000 CFU/ML MIXED GRAM POSITIVE... Complete Cardiovascular: Regular Lungs: Clear Abdomen: Other (non tender; minimally tender with palpation ) Extremities: No edema A/P Assessment and Plan 62 year old female with SBO vs ileus; improving -Clamp NGT; check gastric residual ---if less than 250cc okay to DC NGT -Start sips of clears -Continue mobilization -IVF -Continue non op treatment Attending Statement The exam, history, and the medical decision-making described in the above note were completed with the assistance of the mid-level provider. I reviewed and agree with the findings presented. I attest that I had a [id number] encounter with the patient on the same day, and personally performed and documented my assessment and findings in the medical record. Physical Exam: Abdomen soft, no rebound tenderness or guarding, non-distended having some bowel function, no N/V currently SBO: likely will completely resolve without surgery, will follow Jyoti Yu Aug 29, 2017 13:56 Gee Bower MD Sep 01, 2017 16:56
--- NOTE | 2017-08-29 14:24 | RADRPT ---
EXAM DATE/TIME: 08/29/2017 13:10 [facility] COMPARISON: ABDOMEN FLAT & UPRIGHT, August 27, 2017, 10:20. INDICATIONS : [place] of obstruction. MEDICAL HISTORY : None. SURGICAL HISTORY : Hysterectomy. Appendectomy.Tonsillectomy. ENCOUNTER: Subsequent ACUITY: 4 - 6 days PAIN SCORE: 3/10 LOCATION: Abdomen, upper quadrant. FINDINGS: Supine and upright views of the abdomen were performed. There continues to multiple dilated loops of small bowel throughout the abdomen with air-fluid levels characteristic of a small bowel obstruction. The overall pattern is not significantly changed compared to the prior study. The colon is nondilate d. There is an NG tube in the stomach. However the tip of the NG tube is just within the stomach. The refore, recommend advance the NG tube about 10 cm. The lung bases are clear. No evidence of free air. . CONCLUSION: 1. No significant change in the small bowel obstruction pattern compared to the prior exam. 2. NG tube tip is just within the stomach. Recommend advancing NG tube 10 cm. Ivan Yee MD on August 29, 2017 at 14:20 Board Certified Radiologist. This report was verified electronically.
[2017-08-29 16:00] VITALS: BP 132/76; PULSE 85; RESP 18; TEMP 98.6; O2SAT 93
[2017-08-29 20:00] VITALS: BP 140/66; PULSE 86; RESP 20; TEMP 100.9; O2SAT 93
[2017-08-29] MEDS: AMOXICILLIN/CLAVULANATE K 875 MG TAB NG SCH (20:32)
[2017-08-29] MEDS: MORPHINE SULFATE 4 MG/ML INJ IV PUSH PRN (21:51)
[2017-08-30] VITALS: BP 140/76; PULSE 82; RESP 17; TEMP 99.5; O2SAT 94
[2017-08-30] MEDS: METOCLOPRAMIDE HCL 10 MG/2 ML VIAL IV PUSH SCH ×5 (00:28→22:59)
[2017-08-30] MEDS: MORPHINE SULFATE 4 MG/ML INJ IV PUSH PRN (05:20)
[2017-08-30] MEDS: NS + KCL 20 MEQ INJ 1,000 ML IV SCH ×2 (06:32→17:35)
[2017-08-30] MEDS: LISINOPRIL 20 MG TAB NG SCH (08:35)
[2017-08-30] MEDS: AMOXICILLIN/CLAVULANATE K 875 MG TAB NG SCH ×2 (08:35→21:00)
[2017-08-30] MEDS: FAMOTIDINE 20 MG/2 ML VIAL IV PUSH SCH ×2 (08:36→20:59)
[2017-08-30] MEDS: FLUTICASONE PROPIONATE 50 MCG/ACT 16 GM NASAL SPRAY SCH (08:38)
[2017-08-30 09:00] VITALS: BP 142/79; PULSE 86; RESP 14; TEMP 98.8; O2SAT 90
[2017-08-30] MEDS ORDERED: LORazepam 2 MG/ML VIAL IV PUSH ONE ×2 (10:30→22:45)
[2017-08-30] MEDS ORDERED: ACETAMINOPHEN 1000 MG/100 ML 100 ML IV ONE (10:30)
--- NOTE | 2017-08-30 11:17 | HHI.PR ---
Subjective Remarks Patient seen in follow-up for Small bowel obstruction. Still passing flatus and BM x 2, tolerated clear liquids yesterday and did not have any worsening symptoms. Complaining of sinus pressure with a headache. Objective Vitals Vital Signs Date Time Temp Pulse Resp B/P (MAP) Pulse Ox O2 Delivery O2 Flow Rate FiO2 08/30/17 09:00 98.8 86 14 142/79 (100) 90 08/30/17 00:00 99.5 82 17 140/76 (97) 94 08/29/17 20:00 100.9 86 20 140/66 (90) 93 08/29/17 16:00 98.6 85 18 132/76 (94) 93 08/29/17 12:00 99.6 84 20 143/92 (109) 95 I/O 08/29/17 08/29/17 08/29/17 08/30/17 08/30/17 08/30/17 07:00 15:00 23:00 07:00 15:00 23:00 Intake Total 1500 ml 1487 ml Output Total 800 ml 20 ml 300 ml Balance 700 ml 1467 ml -300 ml Intake Oral 0 ml 340 ml IV Total 1500 ml 1147 ml Gastric Drainage Total 800 ml 20 ml 300 ml # Voids 2 3 # Bowel Movements 0 3 Result Diagram: 08/29/17 0555 08/27/17 0614 Objective Remarks NG tube in place GENERAL: This is a well-nourished, well-developed patient, in no apparent distress. CARDIOVASCULAR: Regular rate and rhythm without murmurs, gallops, or rubs. RESPIRATORY: Clear to auscultation. Breath sounds equal bilaterally. No wheezes , rales, or rhonchi. GASTROINTESTINAL: Abdomen soft, non-tender, nondistended. Hypoactive bowel sounds MUSCULOSKELETAL: Extremities without clubbing, cyanosis, or edema. NEURO: Alert & Oriented x4 to person, place, time, situation. Moves all ext x4 A/P Problem List: (1) Small bowel obstruction ICD Code: K56.609 - Unspecified intestinal obstruction, unspecified as to partial versus complete obstruction Status: Acute Plan: Improving symptoms,+ BM, flatus+ Ambulatory After clamped 20 mL out, patient then started clears and had 340 in with 320 mL out with a NG tube. Will DC NG tube and advance diet gently, discuss with surgery and publication distributor Planning Home with spouse pending improvement of bowel function 1-2 days Lissa Hutson MD Aug 30, 2017 11:17
[2017-08-30 12:00] VITALS: BP 141/76; PULSE 92; RESP 14; TEMP 99.2; O2SAT 92
[2017-08-30 16:00] VITALS: BP 142/72; PULSE 90; RESP 12; TEMP 99.3; O2SAT 95
--- NOTE | 2017-08-30 16:55 | HHI.PR ---
Subjective Subjective Notes Only tolerating smaller meals +BM Objective Vitals/I&O Vital Signs Date Time Temp Pulse Resp B/P (MAP) Pulse Ox O2 Delivery O2 Flow Rate FiO2 08/30/17 12:00 99.2 92 14 141/76 (97) 92 08/26/17 11:02 Room Air Labs Date/Time Source Procedure Growth Status 08/27/17 18:08 Blood Peripheral Aerobic Blood Culture - Preliminary NO GROWTH IN 3 DAYS Resulted 08/27/17 18:08 Blood Peripheral Anaerobic Blood Culture - Preliminary NO GROWTH IN 3 DAYS Resulted 08/26/17 09:05 Urine Clean Catch Urine Culture - Final 50-100,000 CFU/ML MIXED GRAM POSITIVE... Complete Cardiovascular: Regular Lungs: Clear Abdomen: Other (mildly distended; non tender ) Extremities: No edema A/P Assessment and Plan 62 year old female with SBO vs ileus; improving -NGT out; tolerating clears -Advance diet -Continue mobilization -IVF -Continue non op treatment Jyoti Yu Aug 30, 2017 16:54
[2017-08-30 20:00] VITALS: BP 151/72; PULSE 88; RESP 16; TEMP 100.1; O2SAT 94
[2017-08-31] VITALS: BP 139/77; PULSE 78; RESP 16; TEMP 98.9; O2SAT 93
[2017-08-31] MEDS: NS + KCL 20 MEQ INJ 1,000 ML IV SCH (03:49)
[2017-08-31] MEDS: METOCLOPRAMIDE HCL 10 MG/2 ML VIAL IV PUSH SCH ×2 (05:44→11:44)
[2017-08-31 08:00] VITALS: BP 128/72; PULSE 82; RESP 16; TEMP 99.6; O2SAT 91
[2017-08-31] MEDS: LISINOPRIL 20 MG TAB NG SCH (08:16)
[2017-08-31] MEDS: AMOXICILLIN/CLAVULANATE K 875 MG TAB NG SCH (08:17)
[2017-08-31] MEDS: FLUTICASONE PROPIONATE 50 MCG/ACT 16 GM NASAL SPRAY SCH (08:17)
[2017-08-31] MEDS: SODIUM CHLORIDE 0.9% FLUSH 10 ML FLUSH IV FLUSH PRN (08:18)
[2017-08-31] MEDS: FAMOTIDINE 20 MG/2 ML VIAL IV PUSH SCH (08:18)
[2017-08-31] MEDS ORDERED: TYLETAB34 PO (11:41)
--- NOTE | 2017-08-31 11:41 | HHI.DCPOC ---
Discharge Care Plan Diagnosis: (1) Small bowel obstruction Goals to Promote Your Health * To prevent worsening of your condition and complications * To maintain your health at the optimal level Directions to Meet Your Goals Take your medications as prescribed Follow your dietary instruction Follow activity as directed Keep your appointments as scheduled Take your immunizations and boosters as scheduled If your symptoms worsen call your PCP, if no PCP go to Urgent Care Center or Emergency Room Smoking is Dangerous to Your Health. Avoid second hand smoke Call the 24-hour hour crisis hotline for domestic abuse at Lissa Hutson MD Aug 31, 2017 11:41
--- NOTE | 2017-08-31 11:46 | HHI.DS ---
Discharge Summary Admission Date Aug 26, 2017 at 11:05 Discharge Date: Aug 31, 2017 Admitting Diagnosis small bowel obstruction (1) Small bowel obstruction ICD Code: K56.609 - Unspecified intestinal obstruction, unspecified as to partial versus complete obstruction Status: Acute Procedures patient seen and evaluated in follow-up for abdominal pain secondary to small bowel obstruction. Bowel function has greatly improved and returned. Patient tolerating diet, ambulatory, passing bowels and flatus. No further nausea. Patient and patient advised of worrisome signs Brief History - From Admission Written by Willy Snider, acting as scribe for Dr. Soto on 08/26/17 at 13: 50. 62-year-old female with known history of arthritis who presented to hospital because of abdominal pain, nausea vomiting. Patient states that she was in normal state of health with her chronic issues of intermittent constipation. She states it has been worse over the last 2 weeks with worsening constipation. She did take a Dulcolax yesterday. Yesterday approximately at 11:30 AM she started developing abdominal pain in the mid abdomen, she did have lunch that consisted of lettuce and some grapes. She states that the pain progressively got worse up until 4 PM when she started having nausea and vomiting. She states that she was unable to eat anything after that. However continued drinking water. She states that the only thing that she was vomiting up with yellow clear fluid. the pain started at 11:30 AM at 2/10 on a pain scale and by the evening the pain was 9/10 on a pain scale. The pain initially started in the mid abdomen but continued to go higher up until it was in the epigastric region. She started having abdominal distention this morning. She states that she continued to have vomiting throughout the evening in because she could not stop she came to the hospital for evaluation. Patient states that she did have a fever of 99.8. There was significant dizziness whenever she stood removed. She denied any hematemesis, coffee- ground emesis. Patient states that she did have a bowel movement last night which was solid. She denied any hematochezia or melena. Patient came to the hospital for evaluation had CT scan performed which did indicate small bowel obstruction. Patient was recommended admission for further evaluation and management. CBC/BMP: 08/29/17 0555 08/27/17 0614 Significant Findings Laboratory Tests Test 08/29/17 05:55 Red Blood Count 3.43 MIL/MM3 (4.00-5.30) Hemoglobin 11.2 GM/DL (11.6-15.3) Hematocrit 32.4 % (35.0-46.0) Neutrophils (%) (Auto) 82.9 % (16.0-70.0) Lymphocytes (%) (Auto) 5.9 % (9.0-44.0) Monocytes (%) (Auto) 10.6 % (0.0-8.0) Lymphocytes # (Auto) 0.5 TH/MM3 (1.0-4.8) Imaging Last Impressions Abdomen X-Ray 08/29/17 0000 Signed Impressions: Service Date/Time: Tuesday, August 29, 2017 13:10 - CONCLUSION: 1. No significant change in the small bowel obstruction pattern compared to the prior exam. 2. NG tube tip is just within the stomach. Recommend advancing NG tube 10 cm. Ivan Yee MD Abdomen/Pelvis CT 08/26/17 0859 Signed Impressions: Service Date/Time: Saturday, August 26, 2017 10:12 - CONCLUSION: Multiple distended loops of small bowel throughout the abdomen with a transition zone in the distal small bowel near the terminal ileum. These findings indicate a distal small bowel obstruction. Ivan Yee MD PE at Discharge GENERAL: This is a well-nourished, well-developed patient, in no apparent distress. CARDIOVASCULAR: Regular rate and rhythm without murmurs, gallops, or rubs. RESPIRATORY: Clear to auscultation. Breath sounds equal bilaterally. No wheezes , rales, or rhonchi. GASTROINTESTINAL: Abdomen soft, non-tender, nondistended. normoactive bowel sounds MUSCULOSKELETAL: Extremities without clubbing, cyanosis, or edema. NEURO: Alert & Oriented x4 to person, place, time, situation. Moves all ext x4 Pt update on day of discharge Patient seen and evaluated today in follow-up for small bowel obstruction. Ambulating, Hospital Course This patient continued to improve with appeared of bowel rest, IV hydration and conservative care. She was seen by the general surgery team Pt Condition on Discharge: Good Discharge Disposition: Discharge Home Discharge Time: <= 30 minutes Discharge Instructions DIET: Follow Instructions for: Low Fat Diet, Low Fiber Diet Activities you can perform: Regular-No Restrictions Follow up Referrals: Surgical - 1 Week New Medications: Acetaminophen-Codeine (Tylenol-Codeine #3) 300-30 mg Tab 1 TAB PO Q4H PRN for PAIN, #30 TAB 0 Refills Continued Medications: Quinapril (Accupril) 20 Mg Tab 20 MG PO DAILY, #30 TAB 0 Refills Discontinued Medications: Naproxen (Naproxen) 500 Mg Tab 500 MG PO BID, #60 TAB 0 Refills Lissa Hutson MD Aug 31, 2017 11:46
[2017-08-31 12:00] VITALS: BP 150/67; PULSE 75; RESP 16; TEMP 99.5; O2SAT 97
== END 2017-08-31 12:38 | disposition home or self-care (01) | DRG 389 ==
LOC: PHED 08:27 → PHEDA 11:05 → PH3B 11:48
PROVIDERS: ADMIT Hospitalist; ATTEND Hospitalist
DX: K56.50 Intestinal adhesions [bands], unspecified as to partial versus complete obstruction (principal); R65.10 Systemic inflammatory response syndrome (SIRS) of non-infectious origin without acute organ dysfunction; F17.210 Nicotine dependence, cigarettes, uncomplicated; J32.9 Chronic sinusitis, unspecified; M19.90 Unspecified osteoarthritis, unspecified site; Z90.710 Acquired absence of both cervix and uterus; Z90.722 Acquired absence of ovaries, bilateral
CPT/HCPCS: 74020; 74177; 80048; 80053; 81001; 83690; 85025; 85652; 86140; 87040; 87086; 96361; 96374; 96375; J0131; J2060; J2270; J2405; J2765; J3480; J7030; Q9963; Q9967

== ENCOUNTER 2017-09-03 18:23 | Inpatient (IN) | payer OTHER ==
[~2017-09-03] VITALS: Ht 157.5 cm; Wt 54.2 kg
[~2017-09-03 18:23] MED LIST: ACCU20TA3 PO; TYLETAB34 PO
[2017-09-03 18:31] VITALS: BP 116/58; PULSE 112; RESP 18; TEMP 98.7; O2SAT 96
[2017-09-03] MEDS ORDERED: PLAQ200T PO (18:52)
[2017-09-03] MEDS ORDERED: FAMO1TAB37 PO (18:52)
[2017-09-03] MEDS ORDERED: NAPR550T3 PO (18:53)
--- NOTE | 2017-09-03 19:27 | PD ---
HPI Chief Complaint: GI Complaint Time Seen by Provider: 19:08 Travel History International Travel<30 days: No Contact w/Intl Traveler<30days: No Traveled to known affect area: No History of Present Illness HPI This 62-year-old female is complaining of abdominal distention and occasional vomiting. She was admitted to the hospital on August 26 with diagnosis of small bowel obstruction. At that time her abdomen was distended was vomiting. She was having abdominal pain. She is in the hospital for several days and she was released last Monday. She says that her abdomen was still distended when she went home. She was sent home on clear liquids. She has been taking clear liquids and eating just very small amounts. She vomited this afternoon. Her distention has been fairly persistent. She did pass some gas yesterday and passed small amount this morning. When she was admitted it was thought that her small bowel obstruction was secondary to pelvic adhesions. She has had hysterectomy and oophorectomy. [facility] Past Medical History Arthritis: Yes Diminished Hearing: No ?: Not Past Surgical History Appendectomy: Yes Gynecologic Surgery: Yes (OVERECTOMY/UTERIAN REMOVAL) Tonsillectomy: Yes Other Surgery: Yes (R LEG LULU ABLASION) Social History Alcohol Use: Yes (SOCIAL) Tobacco Use: Yes (11/16 PPD) Substance Use: No Allergies-Medications (Allergen,Severity, Reaction): Coded Allergies: nitrofurantoin (Verified Allergy, Severe, rash, 08/26/17) Reported Meds & Prescriptions Reported Meds & Active Scripts Active Reported Naproxen Sodium DS (Naproxen Sodium) 550 Mg Tab 550 Mg PO BID Pepcid (Famotidine) 20 Mg Tab 20 Mg PO BID Plaquenil (Hydroxychloroquine Sulfate) 200 Mg Tab 200 Mg PO DAILY Take with food Review of Systems General / Constitutional: No: Fever, Chills Eyes: No: Diploplia, Blurred Vision HENT: No: Headaches, Vertigo Cardiovascular: No: Chest Pain or Discomfort, Palpitations Respiratory: No: Cough, Shortness of Breath Gastrointestinal: Positive: Nausea, Vomiting, Abdominal Pain, No: Diarrhea Genitourinary: No: Urgency, Frequency Musculoskeletal: No: Myalgias, Arthralgias Neurologic: Positive: Weakness Physical Exam Narrative GENERAL: Well-developed female SKIN: Focused skin assessment warm/dry. HEAD: Atraumatic. Normocephalic. EYES: Pupils equal and round. No scleral icterus. No injection or drainage. ENT: No nasal bleeding or discharge. Mucous membranes pink and moist. NECK: Trachea midline. No JVD. CARDIOVASCULAR: Regular rate and rhythm. No murmur appreciated. RESPIRATORY: No accessory muscle use. Clear to auscultation. Breath sounds equal bilaterally. GASTROINTESTINAL: Abdomen soft, abdomen is distended. Hepatic and splenic margins not palpable. I do not hear any bowel sounds. On rectal exam there are large external hemorrhoids MUSCULOSKELETAL: No obvious deformities. No clubbing. No cyanosis. No edema. NEUROLOGICAL: Awake and alert. No obvious cranial nerve deficits. Motor grossly within normal limits. Normal speech. PSYCHIATRIC: Appropriate mood and affect; insight and judgment normal. Data Data Last Documented VS Vital Signs Date Time Temp Pulse Resp B/P (MAP) Pulse Ox O2 Delivery O2 Flow Rate FiO2 09/03/17 21:31 112 16 110/62 (78) 96 Nasal Cannula 2.00 09/03/17 18:31 98.7 Orders Orders Complete Blood Count With Diff (09/03/17 19:23) Comprehensive Metabolic Panel (09/03/17 19:23) Urinalysis - C+S If Indicated (09/03/17 19:23) Ct Abd/Pel W Iv Contrast(Rout) (09/03/17 19:23) Insert Ng Tube (09/03/17 20:45) Place Ng Tube To Low Intermit (09/03/17 20:45) Lorazepam Inj (Ativan Inj) (09/03/17 21:00) Urine Culture (09/03/17 19:55) Iohexol 350 Inj (Omnipaque 350 Inj) (09/03/17 20:57) Ondansetron Inj (Zofran Inj) (09/03/17 21:15) Morphine Inj (Morphine Inj) (09/03/17 21:15) Place Ng Tube To Low Intermit (09/03/17 21:30) Allison-Gastric Tube Insert/Mon (09/03/17 21:34) Ng Gastric Tube Insert/Monitor (09/03/17 21:34) Admit Order (Ed Use Only) (09/03/17 21:39) Labs Laboratory Tests Test 09/03/17 19:53 09/03/17 19:55 White Blood Count 13.3 TH/MM3 Red Blood Count 3.81 MIL/MM3 Hemoglobin 11.8 GM/DL Hematocrit 35.5 % Mean Corpuscular Volume 93.0 FL Mean Corpuscular Hemoglobin 30.8 PG Mean Corpuscular Hemoglobin Concent 33.1 % Red Cell Distribution Width 13.0 % Platelet Count 413 TH/MM3 Mean Platelet Volume 6.9 FL Neutrophils (%) (Auto) 84.2 % Lymphocytes (%) (Auto) 3.8 % Monocytes (%) (Auto) 10.5 % Eosinophils (%) (Auto) 0.4 % Basophils (%) (Auto) 1.1 % Neutrophils # (Auto) 11.2 TH/MM3 Lymphocytes # (Auto) 0.5 TH/MM3 Monocytes # (Auto) 1.4 TH/MM3 Eosinophils # (Auto) 0.1 TH/MM3 Basophils # (Auto) 0.1 TH/MM3 CBC Comment AUTO DIFF Differential Total Cells Counted 100 Neutrophils % (Manual) 59 % Band Neutrophils % 20 % Lymphocytes % 8 % Monocytes % 11 % Eosinophils % 1 % Neutrophils # (Manual) 10.6 TH/MM3 Metamyelocytes 1 % Differential Comment FINAL DIFF MANUAL Platelet Estimate NORMAL Platelet Morphology Comment CLUMPED Red Cell Morphology Comment NORMAL Blood Urea Nitrogen 18 MG/DL Creatinine 0.55 MG/DL Random Glucose 73 MG/DL Total Protein 6.9 GM/DL Albumin 3.0 GM/DL Calcium Level 8.8 MG/DL Alkaline Phosphatase 56 U/L Aspartate Amino Transf (AST/SGOT) 53 U/L Alanine Aminotransferase (ALT/SGPT) 40 U/L Total Bilirubin 0.4 MG/DL Sodium Level 136 MEQ/L Potassium Level 3.5 MEQ/L Chloride Level 96 MEQ/L Carbon Dioxide Level 26.8 MEQ/L Anion Gap 13 MEQ/L Estimat Glomerular Filtration Rate 112 ML/MIN Urine Color YELLOW Urine Turbidity SLIGHT Urine pH 5.5 Urine Specific [place] 1.027 Urine Protein 30 mg/dL Urine Glucose (UA) NEG mg/dL Urine Ketones 80 OR GREATER mg/dL Urine Occult Blood SMALL Urine Nitrite NEG Urine Bilirubin NEG Urine Leukocyte Esterase NEG Urine RBC 0-3 /hpf Urine WBC 0-2 /hpf Urine Squamous Epithelial Cells 0-5 /hpf Urine Amorphous Sediment SMALL Urine Bacteria MOD /hpf Urine Hyaline Casts 15-19 /lpf Urine Mucus FEW /lpf Microscopic Urinalysis Comment CULTURE INDICATED MDM Medical Decision Making Medical Screen Exam Complete: Yes Emergency Medical Condition: Yes Medical Record Reviewed: Yes Differential Diagnosis Differential includes ileus, small bowel obstruction Narrative Course CT shows persistent small bowel obstruction with possible transition point in the lower abdomen. Patient be admitted to have this. Dr. Vera recommends admission at [facility] in preparation for possible surgery Diagnosis Primary Impression: Small bowel obstruction Admitting Information Admitting Physician Requests: Admit Jose Juan Brown MD Sep 03, 2017 19:27
[2017-09-03 20:05] LABS: AUTOMATED NEUTROPHIL # 11.2 TH/MM3 (1.8-7.7); BASOPHIL # 0.1 TH/MM3 (0-0.2); BASOPHIL % 1.1 % (0.0-2.0); EOSINOPHIL # 0.1 TH/MM3 (0-0.4); EOSINOPHIL % 0.4 % (0.0-4.0); HEMATOCRIT 35.5 % (35.0-46.0); LYMPH % 3.8 % (9.0-44.0); LYMPHOCYTE # 0.5 TH/MM3 (1.0-4.8); MEAN CORPUSCULAR HEMOGLOBIN 30.8 PG (27.0-34.0); MEAN CORPUSCULAR HGB CONC 33.1 % (32.0-36.0); MONO % 10.5 % (0.0-8.0); NEUT % 84.2 % (16.0-70.0); PLATELET COUNT 413 TH/MM3 (150-450); RED BLOOD COUNT 3.81 MIL/MM3 (4.00-5.30); WHITE BLOOD COUNT 13.3 TH/MM3 (4.0-11.0)
[2017-09-03 20:13] LABS: CHLORIDE 96 MEQ/L (98-107); SODIUM (NA) 136 MEQ/L (136-145)
[2017-09-03 20:16] LABS: ANION GAP 13 MEQ/L (5-15); BICARBONATE 26.8 MEQ/L (21.0-32.0)
[2017-09-03 20:17] LABS: BLOOD UREA NITROGEN 18 MG/DL (7-18); HEMO FLAGS AUTO DIFF
[2017-09-03 20:20] LABS: ALT (GPT) 40 U/L (10-53); AST (GOT) 53 U/L (15-37); GLOMERULAR FILTRATION RATE 112 ML/MIN (>89)
[2017-09-03 20:21] LABS: TOTAL BILIRUBIN ADULT 0.4 MG/DL (0.2-1.0)
[2017-09-03 20:22] LABS: ALKALINE PHOSPHATASE 56 U/L (45-117)
[2017-09-03 20:26] LABS: POTASSIUM 3.5 MEQ/L (3.5-5.1)
[2017-09-03 20:31] LABS: BLOOD, URINE SMALL (NEG); GLUCOSE,URINE NEG (NEG); KETONE, URINE 80 OR GREATER mg/dL (NEG); NITRITE,URINE NEG (NEG); PH, URINE 5.5 (5.0-8.5)
[2017-09-03 20:43] LABS: BANDS 20 % (0-6); EOSINOPHILS 1 % (0-4); METAMYELOCYTES 1 % (0-1); NEUTROPHIL # MANUAL DIFF 10.6 TH/MM3 (1.8-7.7); POLYS (SEG NEUTROPHILS) 59 % (16-70); WBC DIFF SAMPLE 100
[2017-09-03 20:44] LABS: PLATELET ESTIMATE SMEAR NORMAL (NORMAL); PLATELET MORPHOLOGY CLUMPED (NORMAL); SCAN/DIFF FINAL DIFF MANUAL
[2017-09-03 20:47] VITALS: BP 125/56; PULSE 100; RESP 18; O2SAT 97
[2017-09-03 20:48] LABS: URINE COLOR YELLOW (YELLW/STRAW)
[2017-09-03 20:49] LABS: HYALINE CAST, URINE 15-19 /lpf (RARE); MUCUS URINE FEW /lpf (OCC)
[2017-09-03 20:50] LABS: BACTERIA, URINE MOD /hpf; RBC, URINE 0-3 /hpf (0-3); SQUAMOUS EPITHELIAL CELL URINE 0-5 /hpf (0-5)
[2017-09-03 20:51] LABS: COMMENT (UR) CULTURE INDICATED; CULTURE IF INDICATED CULTURE INDICATED; WBC, URINE 0-2 /hpf (0-5)
[2017-09-03] MEDS ORDERED: IOHEXOL 350 MG/ML 10 ML VIAL (for RAD DIAG) IVCONTRAST ONE (20:57)
[2017-09-03] MEDS ORDERED: LORazepam 2 MG/ML VIAL IV PUSH ONE (21:00)
[2017-09-03] MEDS ORDERED: ONDANSETRON HCL 4 MG/2 ML VIAL IV PUSH ONE (21:15)
[2017-09-03] MEDS ORDERED: MORPHINE SULFATE 8 MG/ML INJ IV PUSH ONE (21:15)
--- NOTE | 2017-09-03 21:26 | RADRPT ---
EXAM DATE/TIME: 09/03/2017 20:35 [place] COMPARISON: No previous studies available for comparison. INDICATIONS : Distention. Vomiting. Obstruction. IV CONTRAST: 100 cc Omnipaque 350 (iohexol) IV ORAL CONTRAST: No oral contrast ingested. RADIATION DOSE: 7.53 CTDIvol (mGy) MEDICAL HISTORY : None SURGICAL HISTORY : Appendectomy. Hysterectomy. ENCOUNTER: Initial ACUITY: 4 - 6 days PAIN SCALE: 7/10 LOCATION: Bilateral upper quadrant lowr quadrant TECHNIQUE: Volumetric scanning of the abdomen and pelvis was performed. Using automated exposure control and ad justment of the mA and/or kV according to patient size, radiation dose was kept as low as reasonably achievable to obtain optimal diagnostic quality images. DICOM format image data is available electro nically for review and comparison. FINDINGS: One clear except minimal atelectasis. No acute findings in the liver, spleen, adrenals, kidneys or pa ncreas. No calcified gallstones or biliary ductal dilatation. There is marked abnormal small bowel dilatation with several decompressed loops and the terminal ileu m. Findings are characteristic of a small bowel obstruction of unknown etiology. Small bowel dilatati on has worsened slightly since August 26. No free air. CONCLUSION: 1. Distal small bowel obstruction with slight increase in dilatation since August 26 comparison. Que stionable closed loop or internal hernia right lower quadrant. Remigio Macario MD on September 03, 2017 at 21:19 Board Certified Radiologist. This report was verified electronically.
[2017-09-03 21:31] VITALS: BP 110/62; PULSE 112; RESP 16; O2SAT 96
[2017-09-03] MEDS ORDERED: LACTULOSE SYRUP 20 GM/30 ML CUP PO PRN (22:30)
[2017-09-03] MEDS ORDERED: SODIUM CHLORIDE 0.9% FLUSH 10 ML FLUSH IV FLUSH PRN (22:30)
[2017-09-03] MEDS ORDERED: ONDANSETRON HCL 4 MG/2 ML VIAL IVP PRN (22:30)
[2017-09-03] MEDS ORDERED: MAGNESIUM HYDROXIDE SUSP 30 ML CUP PO PRN (22:30)
[2017-09-03] MEDS ORDERED: SENNOSIDES 8.6 MG TAB PO PRN (22:30)
[2017-09-03] MEDS ORDERED: BISACODYL 10 MG SUPP RECTAL PRN (22:30)
[2017-09-03] MEDS: PIPERACIL-TAZO 4.5 GM PREMIX 100 ML IV SCH (22:42)
[2017-09-03] MEDS: SODIUM CHLOR 0.9% 1000 ML INJ 1,000 ML IV SCH (22:42)
[2017-09-04 00:45] VITALS: BP 107/59; PULSE 102; RESP 18; TEMP 100.9; O2SAT 96
[2017-09-04] MEDS: ACETAMINOPHEN 1000 MG/100 ML 100 ML IV PRN ×2 (01:55→16:56)
--- NOTE | 2017-09-04 04:06 | HHI.HP ---
HPI Service [facility] Primary Care Physician Darwin Poon MD Admission Diagnosis SMALL BOWEL OBSTRUCTION Diagnoses: (1) Small bowel obstruction Chief Complaint: Abdominal pain Travel History International Travel<30 Days: No Contact w/Intl Traveler <30 Da: No Traveled to Known Affected Are: No History of Present Illness Mrs. Elizabeth is a 62 y/o female with GERD and recent hospitalization for small bowel obstruction 08/26 - 08/31 who presented to the ED for evaluation of abdominal distention and nausea with vomiting starting at 5 PM on 09/03/2017. Abdomen/pelvis CT with IV contrast showed distal small bowel obstruction with slight increase in dilatation since August 26. Questionable closed-loop or internal hernia right lower quadrant. The patient is seen in her hospital room. She states that she was doing well following discharge and yesterday morning developed some abdominal distention and right upper quadrant pain. At 5 PM, she had a large amount of vomit to accompany her moderate abdominal distention and slight right upper quadrant discomfort. Having just suffered from small bowel obstruction, she recognizes symptoms and presented to the emergency room. She reports some accompanying shortness of breath related to the abdominal distention, denies chest pain, dizziness, dysuria, or hematuria. Review of Systems Except as stated in HPI: all other systems reviewed are Neg Past Family Social History Past Medical History Gastroesophageal reflux disease Small bowel obstruction with recent hospitalization 1014 01/20/19 Questionable history of hypertension Denies diabetes mellitus, coronary artery disease, myocardial infarction, congestive heart failure, atrial fibrillation, liver disease, kidney disease, DVT, PE, CVA, seizures, thyroid dysfunction, or cancers . Past Surgical History Hysterectomy with bilateral salpingo-oophorectomy Appendectomy Tonsillectomy . Reported Medications Reported Meds & Active Scripts Active Reported Naproxen Sodium DS (Naproxen Sodium) 550 Mg Tab 550 Mg PO BID Pepcid (Famotidine) 20 Mg Tab 20 Mg PO BID Plaquenil (Hydroxychloroquine Sulfate) 200 Mg Tab 200 Mg PO DAILY Take with food . Allergies: Coded Allergies: nitrofurantoin (Verified Allergy, Severe, rash, 08/26/17) Active Ordered Medications Current Medications Lorazepam (Ativan Inj) 1 mg ONCE ONCE IV PUSH Last administered on 09/03/17 20:56; Start 09/03/17 at 21:00; Stop 09/03/17 at 21:05; Status DC Iohexol (Omnipaque 350 Inj) 100 ml STK-MED ONCE IVCONTRAST Last administered on 09/03/17 20:57; Start 09/03/17 at 20:57; Stop 09/03/17 at 20:58; Status DC Ondansetron HCl (Zofran Inj) 4 mg ONCE ONCE IV PUSH Last administered on 09/03 21:22; Start 09/03/17 at 21:15; Stop 09/03/17 at 21:17; Status DC Morphine Sulfate (Morphine Inj) 5 mg ONCE ONCE IV PUSH Last administered on 21:25; Start 09/03/17 at 21:15; Stop 09/03/17 at 21:17; Status DC Piperacillin Sod/ Tazobactam Sod 100 ml @ 200 mls/hr Q6H IV Last administered on 09/03/17 22:42; Start 09/03/17 at 23:00 Sodium Chloride 1,000 ml @ 100 mls/hr Q10H IV Last administered on 09/03/17 22:42; Start 09/03/17 at 22:20 Sodium Chloride (NS Flush) 2 ml UNSCH PRN IV FLUSH FLUSH AFTER USING IV ACCESS ; Start 09/03/17 at 22:30 Sodium Chloride (NS Flush) 2 ml BID IV FLUSH ; Start 09/04/17 at 09:00 Ondansetron HCl (Zofran Inj) 4 mg Q6H PRN IVP NAUSEA OR VOMITING; Start at 22:30 Morphine Sulfate (Morphine Inj) 1 mg Q3H PRN IV PAIN 3-5; Start 09/03/17 at 22 :45 Morphine Sulfate (Morphine Inj) 2 mg Q3H PRN IV PAIN 6-10; Start 09/03/17 at 22:45 Acetaminophen 100 ml @ 400 mls/hr Q6H PRN IV FEVER Last administered on 01:55; Start 09/03/17 at 22:30 Senna/Docusate Sodium (Florencia-Colace) 1 tab BID PO ; Start 09/04/17 at 09:00 Magnesium Hydroxide (Milk Of Magnesia Liq) 30 ml Q12H PRN PO Mild constipation ; Start 09/03/17 at 22:30 Sennosides (Senokot) 17.2 mg Q12H PRN PO Moderate constipation; Start at 22:30 Bisacodyl (Dulcolax Supp) 10 mg DAILY PRN RECTAL SEVERE CONSITIPATION; Start 09/03/17 at 22:30 Lactulose (Lactulose Liq) 30 ml DAILY PRN PO SEVERE CONSITIPATION; Start 09/03 at 22:30 Influenza Virus Vaccine (Flu (Quadrivalent) Vaccine Inj) 0.5 ml ONCE ONCE IM ; Start 09/05/17 at 10:00; Stop 09/05/17 at 10:01 . Family History Brother with OR, heart disease Father with tuberculosis Mother with cerebral emboli . Social History Tobacco: Smoked for 40 years, one half pack per day, quit 60 days ago Alcohol: Rare Illicit Drugs: Denies . Physical Exam Vital Signs Vital Signs Date Time Temp Pulse Resp B/P (MAP) Pulse Ox O2 Delivery O2 Flow Rate FiO2 09/04/17 00:45 100.9 102 18 107/59 (75) 96 09/04/17 00:01 09/03/17 21:31 112 16 110/62 (78) 96 Nasal Cannula 2.00 09/03/17 21:29 Nasal Cannula 2.00 09/03/17 20:47 100 18 125/56 (79) 97 Room Air 09/03/17 18:44 16 09/03/17 18:31 98.7 112 18 116/58 (77) 96 Physical Exam GENERAL: This is a pleasant well-nourished, well-developed female patient, in no apparent distress. SKIN: No rashes, ecchymoses or lesions. Cool and dry. HEAD: Atraumatic. Normocephalic. EYES: No scleral icterus. No injection or drainage. ENT: Nose without bleeding, purulent drainage. NECK: Trachea midline. No JVD or lymphadenopathy. CARDIOVASCULAR: Regular rate and rhythm without murmurs, gallops, or rubs. RESPIRATORY: Clear to auscultation. Breath sounds equal bilaterally. No wheezes , rales, or rhonchi. GASTROINTESTINAL: Bowel sounds hypoactive. Abdomen soft, tender right upper quadrant, distended. No guarding. MUSCULOSKELETAL: Extremities without clubbing, cyanosis, or edema. No calf tenderness. NEUROLOGICAL: Awake and alert. Motor and sensory grossly within normal limits. Normal speech. . Laboratory Laboratory Tests Test 09/03/17 19:53 09/03/17 19:55 White Blood Count 13.3 Red Blood Count 3.81 Hemoglobin 11.8 Hematocrit 35.5 Mean Corpuscular Volume 93.0 Mean Corpuscular Hemoglobin 30.8 Mean Corpuscular Hemoglobin Concent 33.1 Red Cell Distribution Width 13.0 Platelet Count 413 Mean Platelet Volume 6.9 Neutrophils (%) (Auto) 84.2 Lymphocytes (%) (Auto) 3.8 Monocytes (%) (Auto) 10.5 Eosinophils (%) (Auto) 0.4 Basophils (%) (Auto) 1.1 Neutrophils # (Auto) 11.2 Lymphocytes # (Auto) 0.5 Monocytes # (Auto) 1.4 Eosinophils # (Auto) 0.1 Basophils # (Auto) 0.1 CBC Comment AUTO DIFF Differential Total Cells Counted 100 Neutrophils % (Manual) 59 Band Neutrophils % 20 Lymphocytes % 8 Monocytes % 11 Eosinophils % 1 Neutrophils # (Manual) 10.6 Metamyelocytes 1 Differential Comment FINAL DIFF MANUAL Platelet Estimate NORMAL Platelet Morphology Comment CLUMPED Red Cell Morphology Comment NORMAL Blood Urea Nitrogen 18 Creatinine 0.55 Random Glucose 73 Total Protein 6.9 Albumin 3.0 Calcium Level 8.8 Alkaline Phosphatase 56 Aspartate Amino Transf (AST/SGOT) 53 Alanine Aminotransferase (ALT/SGPT) 40 Total Bilirubin 0.4 Sodium Level 136 Potassium Level 3.5 Chloride Level 96 Carbon Dioxide Level 26.8 Anion Gap 13 Estimat Glomerular Filtration Rate 112 Urine Color YELLOW Urine Turbidity SLIGHT Urine pH 5.5 Urine Specific [place] 1.027 Urine Protein 30 Urine Glucose (UA) NEG Urine Ketones 80 OR GREATER Urine Occult Blood SMALL Urine Nitrite NEG Urine Bilirubin NEG Urine Leukocyte Esterase NEG Urine RBC 0-3 Urine WBC 0-2 Urine Squamous Epithelial Cells 0-5 Urine Amorphous Sediment SMALL Urine Bacteria MOD Urine Hyaline Casts 15-19 Urine Mucus FEW Microscopic Urinalysis Comment CULTURE INDICATED Date/Time Source Procedure Growth Status 09/03/17 19:55 Urine Clean Catch Urine Culture Pending Received Result Diagram: 09/03/17195209/03/171952 Imaging Last Impressions Abdomen/Pelvis CT 09/03/171922 Signed Impressions: Service Date/Time: Sunday, September 03, 2017 20:35 - CONCLUSION: 1. Distal small bowel obstruction with slight increase in dilatation since August 26 comparison. Questionable closed loop or internal hernia right lower quadrant. Remigio Macario MD . Caprini VTE Risk Assessment Caprini VTE Risk Assessment: Mod/High Risk (score >= 2) Caprini Risk Assessment Model Point Value = 1 Point Value = 2 Point Value = 3 Point Value = 5 Age 41-60 Minor surgery BMI > 25 kg/m2 Swollen legs Varicose veins or History of unexplained or recurrent spontaneous Oral contraceptives or hormone replacement Sepsis (< 1 month) Serious lung disease, including pneumonia (< 1 month) Abnormal pulmonary function Acute myocardial infarction Congestive heart failure (< 1 month) History of inflammatory bowel disease Medical patient at bed rest Age 61-74 Arthroscopic surgery Major open surgery (> 45 min) Laparoscopic surgery (> 45 min) Malignancy Confined to bed (> 72 hours) Immobilizing plaster cast Central venous access Age >= 75 History of VTE Family history of VTE Factor V Leiden Prothrombin [id number] Lupus anticoagulant Anticardiolipin antibodies Elevated serum homocysteine Heparin-induced thrombocytopenia Other congenital or acquired thrombophilia Stroke (< 1 month) Elective arthroplasty Hip, pelvis, or leg fracture Acute spinal cord injury (< 1 month) Prophylaxis Regimen Total Risk Factor Score Risk Level Prophylaxis Regimen 0-1 Low Early ambulation 2 Moderate Order ONE of the following: *Sequential Compression Device (SCD) *Heparin 5000 units SQ BID 3-4 Higher Order ONE of the following medications: *Heparin 5000 units SQ TID *Enoxaparin/Lovenox 40 mg SQ daily (WT < 150 kg, CrCl > 30 mL/min) *Enoxaparin/Lovenox 30 mg SQ daily (WT < 150 kg, CrCl > 10-29 mL/min) *Enoxaparin/Lovenox 30 mg SQ BID (WT < 150 kg, CrCl > 30 mL/min) AND/OR *Sequential Compression Device (SCD) 5 or more Highest Order ONE of the following medications: *Heparin 5000 units SQ TID (Preferred with Epidurals) *Enoxaparin/Lovenox 40 mg SQ daily (WT < 150 kg, CrCl > 30 mL/min) *Enoxaparin/Lovenox 30 mg SQ daily (WT < 150 kg, CrCl > 10-29 mL/min) *Enoxaparin/Lovenox 30 mg SQ BID (WT < 150 kg, CrCl > 30 mL/min) AND *Sequential Compression Device (SCD) Assessment and Plan Problem List: (1) Small bowel obstruction ICD Code: K56.609 - Unspecified intestinal obstruction, unspecified as to partial versus complete obstruction Status: Acute (2) UTI (urinary tract infection) ICD Code: N39.0 - Urinary tract infection, site not specified Assessment and Plan Mrs. Elizabeth is a 62 y/o female with GERD and recent hospitalization for small bowel obstruction 08/26 - 08/31 who presented to the ED for evaluation of abdominal distention and nausea with vomiting starting at 5 PM on 09/03/2017. Abdomen/pelvis CT with IV contrast showed distal small bowel obstruction with slight increase in dilatation since August 26. Questionable closed-loop or internal hernia right lower quadrant. Small Bowel Obstruction - NGT to low intermittent wall suction - Pain med: Morphine 1 - 2 mg IV q3h PRN pain - Consult general surgery - Ayo Levy - patient seen by him last admission - appreciate assistance UTI - WBC 13.3 with left shift, UA suspicious for UTI, await C&S results - Antibiotics Zofran 4.5 grams IV q6h - Adjust antibiotics depending on culture results DVT prophylaxis - SCDs/TEDs . Discussed Condition With Dr. Landaverde, AMEE, and patient . Physician Certification 2 Midnight Certification Type: Admission for Inpatient Services Order for Inpatient Services The services are ordered in accordance with Medicare regulations or non- Medicare payer requirements, as applicable. In the case of services not specified as inpatient-only, they are appropriately provided as inpatient services in accordance with the 2-midnight benchmark. Estimated LOS (days): 3 days is the estimated time the patient will need to remain in the hospital, assuming treatment plan goals are met and no additional complications. Post-Hospital Plan: Home Cordelia Turner Sep 04, 2017 04:06
[2017-09-04] MEDS: PIPERACIL-TAZO 4.5 GM PREMIX 100 ML IV SCH ×4 (06:22→22:55)
[2017-09-04 07:28] LABS: AUTOMATED NEUTROPHIL # 6.1 TH/MM3 (1.8-7.7); BASOPHIL % 0.2 % (0.0-2.0); EOSINOPHIL # 0.1 TH/MM3 (0-0.4); EOSINOPHIL % 0.8 % (0.0-4.0); HEMATOCRIT 35.2 % (35.0-46.0); HEMO FLAGS DIFF FINAL; LYMPH % 5.2 % (9.0-44.0); LYMPHOCYTE # 0.4 TH/MM3 (1.0-4.8); MEAN CELL VOLUME 94.4 FL (80.0-100.0); MEAN CORPUSCULAR HEMOGLOBIN 31.5 PG (27.0-34.0); MEAN CORPUSCULAR HGB CONC 33.4 % (32.0-36.0); MONO % 19.1 % (0.0-8.0); NEUT % 74.7 % (16.0-70.0); PLATELET COUNT 389 TH/MM3 (150-450); RED BLOOD COUNT 3.73 MIL/MM3 (4.00-5.30); RED CELL DISTRIBUTION WIDTH 13.2 % (11.6-17.2); WHITE BLOOD COUNT 8.2 TH/MM3 (4.0-11.0)
[2017-09-04 07:58] LABS: ALT (GPT) 39 U/L (10-53); ANION GAP 14 MEQ/L (5-15); AST (GOT) 53 U/L (15-37); BICARBONATE 26.6 MEQ/L (21.0-32.0); BLOOD UREA NITROGEN 17 MG/DL (7-18); CHLORIDE 97 MEQ/L (98-107); GLOMERULAR FILTRATION RATE 88 ML/MIN (>89); POTASSIUM 3.4 MEQ/L (3.5-5.1); SODIUM (NA) 138 MEQ/L (136-145)
[2017-09-04 08:00] VITALS: BP 93/62; PULSE 120; RESP 20; TEMP 100.6; O2SAT 96
[2017-09-04 08:01] LABS: ALKALINE PHOSPHATASE 52 U/L (45-117); TOTAL BILIRUBIN ADULT 0.4 MG/DL (0.2-1.0)
[2017-09-04] MEDS: DOCUSATE SODIUM 50 MG/SENNA 8.6 MG TAB PO SCH ×2 (09:00→20:26)
[2017-09-04] MEDS: SODIUM CHLORIDE 0.9% FLUSH 10 ML FLUSH IV FLUSH SCH ×2 (09:00→20:25)
--- NOTE | 2017-09-04 10:56 | HHI.PR ---
Subjective Remarks Follow-up visit small bowel obstruction. Patient seen today ambulating the hallway. NGT is clamped. States that she had about more than 200 ML's from the NG tube. States she has no nausea or vomiting after clamping. States that they just Clamp it for her to be able to move around and walk. Reports some mild pain left lower quadrant otherwise, denies SOB/ dyspnea. Denies chest pain , palpitations, headaches, dizziness. Denies fevers, chills, n/v/d. Denies dysuria. Objective Vitals Vital Signs Date Time Temp Pulse Resp B/P (MAP) Pulse Ox O2 Delivery O2 Flow Rate FiO2 09/04/17 08:00 100.6 120 20 93/62 (72) 96 09/04/17 00:45 100.9 102 18 107/59 (75) 96 09/04/17 00:01 09/03/17 21:31 112 16 110/62 (78) 96 Nasal Cannula 2.00 09/03/17 21:29 Nasal Cannula 2.00 09/03/17 20:47 100 18 125/56 (79) 97 Room Air 09/03/17 18:44 16 09/03/17 18:31 98.7 112 18 116/58 (77) 96 I/O 09/03/17 09/03/17 09/03/17 09/04/17 09/04/17 09/04/17 07:00 15:00 23:00 07:00 15:00 23:00 Intake Total 1002 ml Output Total 1125 ml Balance -123 ml Intake IV Total 1002 ml Output Urine Total 75 ml Gastric Drainage Total 1050 ml # Voids 1 2 Result Diagram: 09/04/1761709/04/17617 Imaging Last Impressions Abdomen/Pelvis CT 09/03/171922 Signed Impressions: Service Date/Time: Sunday, September 03, 2017 20:35 - CONCLUSION: 1. Distal small bowel obstruction with slight increase in dilatation since August 26 comparison. Questionable closed loop or internal hernia right lower quadrant. Remigio Macario MD Objective Remarks GENERAL: This is a well-nourished, well-developed patient, in no apparent distress. SKIN: Warm and dry. HEENT: Normocephalic. Pupils equal round and reactive. Nose without bleeding. Airway patent. NECK: Trachea midline. No JVD. Supple. CARDIOVASCULAR: Regular rate and rhythm without murmurs, gallops, or rubs. RESPIRATORY: Clear to auscultation. Breath sounds equal bilaterally. No wheezes , rales, or rhonchi. GASTROINTESTINAL: Abdomen mildly distended. Tenderness to palpate LLQ. Bowel Sounds heard LUQ, unable to hear on the right MUSCULOSKELETAL: Extremities without clubbing, cyanosis, or edema. NEUROLOGICAL: Awake and alert. Oriented to time, place, person. No focal neuro deficit. Moves all extremities. Normal speech. A/P Problem List: (1) Small bowel obstruction ICD Code: K56.609 - Unspecified intestinal obstruction, unspecified as to partial versus complete obstruction Status: Acute (2) UTI (urinary tract infection) ICD Code: N39.0 - Urinary tract infection, site not specified Assessment and Plan Mrs. Elizabeth is a 62 y/o female with GERD and recent hospitalization for small bowel obstruction 08/26 - 08/31 who presented to the ED for evaluation of abdominal distention and nausea with vomiting starting at 5 PM on 09/03/2017. Abdomen/pelvis CT with IV contrast showed distal small bowel obstruction with slight increase in dilatation since August 26. Questionable closed-loop or internal hernia right lower quadrant. Small Bowel Obstruction - NGT to low intermittent wall suction - Pain med: Morphine 1 - 2 mg IV q3h PRN pain - Zofran IV - Consult general surgery - Dr. Rollins - patient seen by him last admission - appreciate assistance UTI, suspected - UA positive, culture without growth for 24 hours - Zosyn 4.5 grams IV q6h - May continue Zosyn as patient still has elevated temp. - Leukocytosis improved. DVT prophylaxis - SCDs/TEDs Discuss with patient, nursing, Dr. Roper Discharge Planning Plan for DC if cleared by Surgery. Patient might need surgical intervention. Oscar Sabillon Sep 04, 2017 10:56
[2017-09-04 12:00] VITALS: BP 108/63; PULSE 101; RESP 18; TEMP 100; O2SAT 97
[2017-09-04 16:00] VITALS: BP 94/63; PULSE 106; RESP 16; TEMP 100.8; O2SAT 97
[2017-09-04] MEDS: SODIUM CHLOR 0.9% 1000 ML INJ 1,000 ML IV SCH ×2 (16:25→18:20)
[2017-09-04 20:14] VITALS: BP 88/51; PULSE 111; RESP 17; TEMP 99.4; O2SAT 93
[2017-09-04] MEDS: MORPHINE SULFATE 2 MG/ML INJ IV PRN (20:32)
--- NOTE | 2017-09-04 22:10 | MB ---
cc: WIL GONZALEZ M.D. DATE OF CONSULTATION 09/04/2017 REASON FOR CONSULTATION Recurrent bowel obstruction. HISTORY OF PRESENT ILLNESS Ms. Elizabeth is a very pleasant 62-year-old female who was admitted last week for a mechanical bowel obstruction. She was managed nonoperatively and her bowel obstruction resolved. She was subsequently discharged home. The patient was home for about 48 hours and doing well, however, her nausea, vomiting, abdominal distension returned. She came back to [facility] where she was seen and evaluated and then admitted to [facility] for potential surgery. The patient reports that she is in no significant pain at this time. They did place an NG tube in the emergency department and apparently got out about a liter of green fluid. The patient was followed by Dr. Bower when she was here last week but unfortunately he is off today and I am asked to see the patient in his absence. PAST MEDICAL HISTORY Arthritis. 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 MEDICATIONS Her medication list includes: 1. Accupril. 2. Naprosyn. ALLERGIES SHE IS ALLERGIC TO NITROFURANTOIN. FAMILY HISTORY Noncontributory. SOCIAL HISTORY She smokes about half a pack a day and drinks alcohol on social basis. She lives here in town with her . REVIEW OF SYSTEMS The patient reports nausea, vomiting, abdominal distention. She reports a bowel movement yesterday which was quite small. She is not sure when she last passed flatus. She reports some mild shortness of breath secondary to the abdominal distension and a crampy type pain. She denies any chest pain. She denies any fever or chills. PHYSICAL EXAMINATION VITAL SIGNS: Temperature is 98.7, pulse is 100, blood pressure is 108/63, respiratory rate 20. GENERAL: This is a pleasant middle-aged female accompanied by her in the room. HEENT: Pupils equal round and reactive to light. Sclerae are white. She has a nasogastric tube in place with about a liter of green fluid in the wall suction. Her mucous membranes are moist. NECK: Supple. LUNGS: Her lungs are clear to auscultation bilaterally. CARDIOVASCULAR: S1-S2 no murmur. ABDOMEN: Distended but soft. She has no bowel sounds present. She has a Pfannenstiel type incision. She has no rebound or guarding. EXTREMITIES: Free range of motion x4. NEUROLOGIC: Alert and oriented times three. LABORATORY DATA White blood cell count was 13 on admission, today it was 8.2. Hemoglobin is 11.8, platelet count is 389. Electrolytes are all within normal limits except for hypokalemia at 3.4. IMAGING CT abdomen and pelvis was repeated and shows a distal small bowel obstruction with dilated loops of small bowel with some decompressed terminal ileum and decompressed colon. IMPRESSION Recurrent small bowel obstruction. PLAN At this point I advised the patient she has failed medical management and requires operative intervention. Dr. Bower is aware and he plans on taking her to the operating room tomorrow. Time is yet to be determined due to the fact that this is an add-on. The patient and her are agreeable with operative intervention. I advised her if she becomes unstable or develops worsening pain she may require exploration tonight. She expressed understanding about this. Consents have been obtained for surgery and the patient will be kept n.p.o. with NG tube in place. MD NAVEED Goodson/KK /5:36 PM /10:00 PM
[2017-09-05] VITALS: BP 104/59; PULSE 102; RESP 17; TEMP 98.8; O2SAT 95
[2017-09-05 00:32] LABS: AUTOMATED NEUTROPHIL # 7.1 TH/MM3 (1.8-7.7); BASOPHIL % 0.2 % (0.0-2.0); EOSINOPHIL # 0.1 TH/MM3 (0-0.4); EOSINOPHIL % 0.7 % (0.0-4.0); HEMATOCRIT 37.2 % (35.0-46.0); LYMPH % 6.5 % (9.0-44.0); LYMPHOCYTE # 0.6 TH/MM3 (1.0-4.8); MEAN CELL VOLUME 93.3 FL (80.0-100.0); MEAN CORPUSCULAR HGB CONC 34.3 % (32.0-36.0); MONO % 13.8 % (0.0-8.0); NEUT % 78.8 % (16.0-70.0); PLATELET COUNT 462 TH/MM3 (150-450); RED BLOOD COUNT 3.99 MIL/MM3 (4.00-5.30); RED CELL DISTRIBUTION WIDTH 13.5 % (11.6-17.2)
[2017-09-05 00:35] LABS: HEMO FLAGS AUTO DIFF
[2017-09-05 00:46] LABS: APTT (PATIENT) 29.9 SEC (24.3-30.1); INTERNATIONAL NORMALIZED RATIO 1.2 RATIO; PROTHROMBIN TIME - PATIENT 13.4 SEC (9.8-11.6)
[2017-09-05 00:51] LABS: TOTAL BILIRUBIN ADULT 0.6 MG/DL (0.2-1.0)
[2017-09-05 01:04] LABS: BANDS 31 % (0-6); BASOPHILS 1 % (0-2); EOSINOPHILS 1 % (0-4); METAMYELOCYTES 1 % (0-1); NEUTROPHIL # MANUAL DIFF 7.4 TH/MM3 (1.8-7.7); POLYS (SEG NEUTROPHILS) 50 % (16-70); WBC DIFF SAMPLE 100
[2017-09-05 01:05] LABS: PLATELET ESTIMATE SMEAR NORMAL (NORMAL); PLATELET MORPHOLOGY NORMAL (NORMAL); SCAN/DIFF FINAL DIFF MANUAL
[2017-09-05 02:22] LABS: LACTIC ACID GHOST NOT REPORTABLE
[2017-09-05] MEDS: SODIUM CHLOR 0.9% 1000 ML INJ 1,000 ML IV SCH ×4 (04:20→20:19)
[2017-09-05] MEDS: PIPERACIL-TAZO 4.5 GM PREMIX 100 ML IV SCH (05:04)
[2017-09-05 08:00] VITALS: BP 91/53; PULSE 102; RESP 15; TEMP 97.9; O2SAT 95
[2017-09-05] MEDS: DOCUSATE SODIUM 50 MG/SENNA 8.6 MG TAB PO SCH ×2 (08:36→21:00)
[2017-09-05] MEDS: SODIUM CHLORIDE 0.9% FLUSH 10 ML FLUSH IV FLUSH SCH ×2 (08:38→21:00)
[2017-09-05 09:14] LABS: AUTOMATED NEUTROPHIL # 7.6 TH/MM3 (1.8-7.7); BASOPHIL % 0.1 % (0.0-2.0); EOSINOPHIL % 0.5 % (0.0-4.0); HEMATOCRIT 35.1 % (35.0-46.0); HEMO FLAGS DIFF FINAL; LYMPHOCYTE # 0.6 TH/MM3 (1.0-4.8); MEAN CELL VOLUME 92.5 FL (80.0-100.0); MEAN CORPUSCULAR HEMOGLOBIN 32.2 PG (27.0-34.0); MEAN CORPUSCULAR HGB CONC 34.8 % (32.0-36.0); MONO % 12.4 % (0.0-8.0); PLATELET COUNT 446 TH/MM3 (150-450); RED BLOOD COUNT 3.79 MIL/MM3 (4.00-5.30); RED CELL DISTRIBUTION WIDTH 13.3 % (11.6-17.2); WHITE BLOOD COUNT 9.4 TH/MM3 (4.0-11.0)
[2017-09-05] MEDS: MORPHINE SULFATE 2 MG/ML INJ IV PRN ×2 (09:44)
[2017-09-05] MEDS ORDERED: INFLUENZA VIRUS VACCINE (QUADRIVALENT) 0.5 ML SYR IM ONE (10:00)
[2017-09-05 10:23] LABS: ALKALINE PHOSPHATASE 63 U/L (45-117); ALT (GPT) 58 U/L (10-53); ANION GAP 13 MEQ/L (5-15); AST (GOT) 51 U/L (15-37); BICARBONATE 33.8 MEQ/L (21.0-32.0); CHLORIDE 89 MEQ/L (98-107); GLOMERULAR FILTRATION RATE 40 ML/MIN (>89); SODIUM (NA) 136 MEQ/L (136-145); TOTAL BILIRUBIN ADULT 0.6 MG/DL (0.2-1.0)
[2017-09-05 10:37] LABS: BLOOD UREA NITROGEN 35 MG/DL (7-18); POTASSIUM 2.9 MEQ/L (3.5-5.1)
[2017-09-05] MEDS ORDERED: POTASSIUM CHLOR 20 MEQ PREMIX 100 ML IV SCH (11:45)
[2017-09-05] MEDS: PIPERACIL-TAZO 3.375 GM PREMIX 50 ML IV SCH ×2 (13:33→18:35)
--- NOTE | 2017-09-05 15:00 | EKG ---
Date Performed: 09/05/2017 Time Performed: 07:27:49 PTAGE: 62 years EKG: Sinus rhythm POSSIBLE LEFT ATRIAL ENLARGEMENT ST DEVIATION AND MODERATE T-WAVE ABNORMALITY, CONSIDER ANTEROLATERA L ISCHEMIA ST DEVIATION AND MODERATE T-WAVE ABNORMALITY, CONSIDER INFERIOR ISCHEMIA ABNORMAL ECG NO PREVIOUS TRACING DOCTOR: Sammy Drummond Interpretating Date/Time 09/05/2017 14:55:50
--- NOTE | 2017-09-05 16:01 | HHI.PR ---
Subjective Remarks Hypokalemia this morning with a potassium of 2.9. IV replacement is provided. She's also had a failure of conservative therapy for her bowel obstruction and will go to the OR today for adhesion lysis. Patient has points abdominal pain and nausea. Objective Vital Signs Date Time Temp Pulse Resp B/P (MAP) Pulse Ox O2 Delivery O2 Flow Rate FiO2 09/05/17 08:00 97.9 102 15 91/53 (66) 95 09/05/17 00:05 18 09/05/17 00:00 98.8 102 17 104/59 (74) 95 09/04/17 20:14 99.4 111 17 88/51 (63) 93 09/04/17 16:00 100.8 106 16 94/63 (73) 97 I/O 09/04/17 09/04/17 09/04/17 09/05/17 09/05/17 09/05/17 07:00 15:00 23:00 07:00 15:00 23:00 Intake Total 1002 ml 120 ml 925 ml 1200 ml 1000 ml Output Total 1125 ml 1000 ml 450 ml Balance -123 ml 120 ml -75 ml 750 ml 1000 ml Intake Oral 120 ml IV Total 1002 ml 925 ml 1200 ml 1000 ml Output Urine Total 75 ml 200 ml Gastric Drainage Total 1050 ml 1000 ml 250 ml # Voids 2 3 Result Diagram: 09/05/1761109/05/17 06 Objective Remarks GENERAL: NAD, A&Ox3 HEAD: Normocephalic. NECK: Supple, trachea midline. No lymphadenopathy. EYES: No scleral icterus. No injection or drainage. CARDIOVASCULAR: Regular rate and rhythm without murmurs, gallops, or rubs. RESPIRATORY: Breath sounds equal bilaterally. No accessory muscle use. GASTROINTESTINAL: Distended, hypoactive bowel sounds, tender. MUSCULOSKELETAL: No cyanosis, or edema. SKIN: Warm and dry. NEURO: No focal neurological deficitis. A/P Problem List: (1) UTI (urinary tract infection) ICD Code: N39.0 - Urinary tract infection, site not specified (2) Small bowel obstruction ICD Code: K56.609 - Unspecified intestinal obstruction, unspecified as to partial versus complete obstruction Status: Acute (3) Systemic inflammatory response syndrome ICD Code: R65.10 - Systemic inflammatory response syndrome (SIRS) of non- infectious origin without acute organ dysfunction Assessment and Plan Assessment and Plan 62-year-old female admitted secondary to small bowel obstruction Small Bowel Obstruction Continue NG tube Surgeons following Pain treatments as needed Zofran as needed Patient will go to the OR today for adhesion lysis Hypokalemia Replacement provided Continue to monitor potassium levels UTI Continue Zosyn DVT prophylaxis SHAHIDs Trever Roper MD Sep 05, 2017 16:01
[2017-09-05] MEDS ORDERED: ACETAMINOPHEN 1000 MG/100 ML 100 ML IV ONE (16:04)
[2017-09-05] MEDS ORDERED: BUPIVACAINE/EPINEPHRINE 0.25% 50 ML VIAL ONE (16:09)
[2017-09-05 19:20] LABS: AUTOMATED NEUTROPHIL # 6.3 TH/MM3 (1.8-7.7); BASOPHIL % 0.1 % (0.0-2.0); EOSINOPHIL % 0.3 % (0.0-4.0); HEMATOCRIT 28.6 % (35.0-46.0); LYMPH % 10.9 % (9.0-44.0); LYMPHOCYTE # 0.9 TH/MM3 (1.0-4.8); MEAN CELL VOLUME 93.3 FL (80.0-100.0); MEAN CORPUSCULAR HEMOGLOBIN 34.5 PG (27.0-34.0); NEUT % 77.7 % (16.0-70.0); PLATELET COUNT 421 TH/MM3 (150-450); RED BLOOD COUNT 3.06 MIL/MM3 (4.00-5.30); RED CELL DISTRIBUTION WIDTH 13.1 % (11.6-17.2); WHITE BLOOD COUNT 8.2 TH/MM3 (4.0-11.0)
[2017-09-05 19:22] LABS: BLOOD GAS BASE EXCESS 5.5 mmol/L (-2-2); BLOOD GAS CARBOXYHEMOGLOBIN 1.6 % (0-4); BLOOD GAS HCO3 29 mmol/L (22-26); BLOOD GAS METHEMOGLOBIN 1.3 % (0-2); BLOOD GAS O2 HGB SATURATION 96 % (90-100); BLOOD GAS OXYGEN CONTENT 16.1 Vol % (12.0-20.0); BLOOD GAS PCO2 40 mmHg (38-42); BLOOD GAS PO2 196 mmHg (61-120); BLOOD GAS TOTAL HGB 11.6 G/DL (12.0-16.0); CRITICAL VALUE NO; OXYGEN DEVICE OR; TEMP CORR TO 98.6
[2017-09-05 19:22] LABS: HEMO FLAGS AUTO DIFF
[2017-09-05 19:23] LABS: STAT YES; VENT SETTINGS OR SETTINGS
[2017-09-05 19:25] LABS: APTT (PATIENT) 29.4 SEC (24.3-30.1); INTERNATIONAL NORMALIZED RATIO 1.2 RATIO; PROTHROMBIN TIME - PATIENT 13.8 SEC (9.8-11.6)
[2017-09-05] MEDS ORDERED: SUGAMMADEX SODIUM 200 MG/2 ML VIAL IV PUSH ONE ×2 (19:26)
[2017-09-05 19:36] LABS: BICARBONATE 30.2 MEQ/L (21.0-32.0); POTASSIUM 3.4 MEQ/L (3.5-5.1)
[2017-09-05] MEDS ORDERED: DO NOT ADM ANY ANTICOAGULANT DRUGS PRN (19:50)
[2017-09-05] MEDS ORDERED: Post-op Orders (for Pharmacy) MISC XX ONE (20:00)
[2017-09-05] MEDS ORDERED: NALOXONE HCL 0.4 MG/ML AMP IV PUSH PRN ×2 (20:00)
[2017-09-05] MEDS ORDERED: BENZOCAINE 20% ORAL SPR 60 ML CAN MT PRN (20:00)
[2017-09-05] MEDS ORDERED: MORPHINE SULFATE 30 MG/30 ML PCA IV SCH (20:00)
[2017-09-05] MEDS ORDERED: ONDANSETRON HCL 4 MG/2 ML VIAL IV PUSH PRN (20:00)
[2017-09-05 20:15] VITALS: BP 105/41
--- NOTE | 2017-09-05 20:36 | PD.CONS ---
HPI Service Critical Care Medicine Consult Requested By Primary Care Physician Darwin Poon MD Past Family Social History Allergies: Coded Allergies: nitrofurantoin (Verified Allergy, Severe, rash, 08/26/17) Physical Exam Vital Signs Vital Signs Date Time Temp Pulse Resp B/P (MAP) Pulse Ox O2 Delivery O2 Flow Rate FiO2 09/05/17 20:16 94 20 93/55 (68) 96 Simple Mask 6 09/05/17 20:15 105/41 (62) 09/05/17 20:00 97.6 93 20 88/51 (63) 96 Simple Mask 6 09/05/17 08:00 97.9 102 15 91/53 (66) 95 09/05/17 00:05 18 09/05/17 00:00 98.8 102 17 104/59 (74) 95 Laboratory Laboratory Tests Test 09/05/17 00:12 09/05/17 03:28 09/05/17 06:12 09/05/17 18:38 White Blood Count 9.0 9.4 8.2 Red Blood Count 3.99 3.79 3.06 Hemoglobin 12.7 12.2 10.6 Hematocrit 37.2 35.1 28.6 Mean Corpuscular Volume 93.3 92.5 93.3 Mean Corpuscular Hemoglobin 32.0 32.2 34.5 Mean Corpuscular Hemoglobin Concent 34.3 34.8 37.0 Red Cell Distribution Width 13.5 13.3 13.1 Platelet Count 462 446 421 Mean Platelet Volume 6.7 7.2 6.9 Neutrophils (%) (Auto) 78.8 81.0 77.7 Lymphocytes (%) (Auto) 6.5 6.0 10.9 Monocytes (%) (Auto) 13.8 12.4 11.0 Eosinophils (%) (Auto) 0.7 0.5 0.3 Basophils (%) (Auto) 0.2 0.1 0.1 Neutrophils # (Auto) 7.1 7.6 6.3 Lymphocytes # (Auto) 0.6 0.6 0.9 Monocytes # (Auto) 1.2 1.2 0.9 Eosinophils # (Auto) 0.1 0.0 0.0 Basophils # (Auto) 0.0 0.0 0.0 CBC Comment AUTO DIFF DIFF FINAL AUTO DIFF Differential Total Cells Counted 100 Neutrophils % (Manual) 50 Band Neutrophils % 31 Lymphocytes % 7 Monocytes % 9 Eosinophils % 1 Basophils % 1 Neutrophils # (Manual) 7.4 Metamyelocytes 1 Differential Comment FINAL DIFF MANUAL Platelet Estimate NORMAL Platelet Morphology Comment NORMAL Red Cell Morphology Comment NORMAL Prothrombin Time 13.4 13.8 Prothromb Time International Ratio 1.2 1.2 Activated Partial Thromboplast Time 29.9 29.4 Creatinine 1.35 1.35 2.05 Estimat Glomerular Filtration Rate 40 40 25 Lactic Acid Level 2.1 1.2 Total Bilirubin 0.6 0.6 Blood Urea Nitrogen 35 46 Random Glucose 119 144 Total Protein 7.6 Albumin 3.0 Calcium Level 8.8 7.8 Alkaline Phosphatase 63 Aspartate Amino Transf (AST/SGOT) 51 Alanine Aminotransferase (ALT/SGPT) 58 Sodium Level 136 139 Potassium Level 2.9 3.4 Chloride Level 89 94 Carbon Dioxide Level 33.8 30.2 Anion Gap 13 15 Test 09/05/17 19:00 Blood Gas Puncture Site DRAWN IN OR Blood Gas Patient Temperature 98.6 Blood Gas HCO3 29 Blood Gas Base Excess 5.5 Blood Gas Oxygen Saturation 96 Arterial Blood pH 7.48 Arterial Blood Partial Pressure CO2 40 Arterial Blood Partial Pressure O2 196 Arterial Blood Oxygen Content 16.1 Arterial Blood Carboxyhemoglobin 1.6 Arterial Blood Methemoglobin 1.3 Blood Gas Hemoglobin 11.6 Oxygen Delivery Device OR Blood Gas Ventilator Setting OR SETTINGS Date/Time Source Procedure Growth Status 09/05/17 00:27 Blood Peripheral Aerobic Blood Culture Pending Received 09/05/17 00:27 Blood Peripheral Anaerobic Blood Culture Pending Received 09/03/17 19:55 Urine Clean Catch Urine Culture - Final 50-100,000 CFU/ML MIXED GRAM POSITIVE... Complete Result Diagram: 09/05/17183709/05/17 183 José Miguel Pham MD Sep 05, 2017 20:36
[2017-09-05 20:43] LABS: BANDS 23 % (0-6); METAMYELOCYTES 2 % (0-1); MYELOCYTES 2 % (0-0); NEUTROPHIL # MANUAL DIFF 7.1 TH/MM3 (1.8-7.7); POLYS (SEG NEUTROPHILS) 58 % (16-70); PROMYELOCYTES 1 % (0-0); WBC DIFF SAMPLE 100
[2017-09-05] MEDS ORDERED: SODIUM CHLOR 0.9% 1000 ML INJ 1,000 ML IV ONE ×2 (20:45)
[2017-09-05 20:46] LABS: DOHLE BODIES PRESENT (NONE SEEN); PLATELET ESTIMATE SMEAR NORMAL (NORMAL); PLATELET MORPHOLOGY CLUMPED (NORMAL); SCAN/DIFF FINAL DIFF MANUAL
[2017-09-05] MEDS ORDERED: PANTOPRAZOLE SOD 40 MG DELAYED RELEASE TAB PO SCH (21:00)
[2017-09-05] MEDS ORDERED: PCA - TOTAL MG MORPHINE DELIVERED PER SHIFT SCH (22:00)
[2017-09-05] MEDS: FLUCONAZOLE 400 MG PREMIX BAG 200 ML IV SCH (22:00)
[2017-09-06] VITALS (12 sets, daily range): BP systolic 84–112; BP diastolic 50–60; PULSE 113–135; RESP 12–22; TEMP 96.9–100.5; O2SAT 93–100
--- NOTE | 2017-09-06 00:14 | MP ---
cc: AP WESTON DATE OF SURGERY: 09/05/2017 PREOPERATIVE DIAGNOSIS: Small bowel obstruction. POSTOPERATIVE DIAGNOSIS Small bowel obstruction with internal hernia and gangrenous loop of distal ileum. PROCEDURE 1. Diagnostic laparoscopy 2. Exploratory laparotomy 3. Lysis of adhesions. 4. Right hemicolectomy with resection of the distal ileum. SURGEON: Ap Weston MD. PACKAGE WORKER: Adam Peralta, Medical Student III ANESTHESIA General BLOOD LOSS 150 cc COMPLICATIONS None FINDINGS Severely dilated small bowel from the ligament of Treitz to the last 20 cm of small bowel decompressed, transition point with focal perforation and gangrene of closed loop obstruction with abscess formation at the area of the right colon. INDICATIONS FOR PROCEDURE Patient is a 62 year-old female with a recent admission for small bowel obstruction. The patient resolved nonoperatively, however, she returned with recurrent symptoms and worsening of her CT scan and clinical exam. I discussed with the patient and recommended diagnostic laparoscopy and possible open, possible bowel resection for bowel obstruction. She agreed to the procedure. The risks, benefits and alternatives were discussed with the patient prior to the procedure. DESCRIPTION OF PROCEDURE: The patient was taken to the operating room, placed in supine position, placed under general endotracheal anesthesia. The patient's abdomen was entered through Isaacs type technique. We made a small incision just above the umbilicus and put a 10 millimeter trocar directly into the fascial defect under direct visualization. We insufflated the abdomen, surveyed the abdomen. There were no complications from entry. We placed two 5 millimeter ports at the midline below the umbilicus, under direct visualization with the laparoscope. Due to the distal nature of the small bowel obstruction and apparent poor decompression of the NG tube, there was essentially very little area to work. We actually were able to identify the area of the obstruction which is towards the right upper quadrant and decompressed the small bowel, however, these were unable to be remedied laparoscopically due to the large amount of dilated bowel. At this point in time we converted to open procedure. A midline incision was made from above the umbilicus down to below the umbilicus connecting all three port sites with the 15 blade scalpel. Bovie electrocautery was used to dissect the subcutaneous tissue and open the fascia for the full length of the incision. We used hand retractors and we eviscerated all the dilated small bowerl. We actually decompressed all of the small bowel, approximately 3 liters of small bowel contents into the stomach and decompressed through the NG tube. Once we decompressed the small bowel and reduced it back into the abdomen, we were able to better visualize the pathologic process. Essentially we performed lysis of adhesions and opened up a loop of distal ileum approximately 20 to 30 cm from the terminal ileum that contained loop that had perforated with gangrene, and again it contained perforation. This was very intimately involved with the right colon and it was difficult to be sure if this was not eroded into the colon or involved in the colon in some way. At this point in time it was in the patient's interest to resect the area of terminal ileum with the perforation as well as the right colon which would remove all of the nonviable tissue from the patient with the simplest resection. We mobilized the right line of Toldt and mobilized the hepatic flexure using the Enseal device as well as Bovie electrocautery. We divided the transverse colon just distal to the middle branch of the ileocolic vessel leaving the distal branches intact as we took the vessels close to the bowel. We took the Enseal device and then tied off the major vessels with 2-0 silk sutures and divided all the mesentery. We divided the distal ileum and the distal transverse colon, both with the blue load on the GI 75 stapler. This was passed off the terminal ileum and right colon for permanent processing. This essentially removed all necrotic bowel and abscess from the patient. There was extensive small bowel remaining, way too long to measure. This was clearly adequate length of small bowel. We had the distal transverse colon and we performed a [id number] functional anastomosis at the ileum and transverse colon, at the antimesenteric border using the GI 75 stapler. We closed the defect with a second load on the GI 75. This was done without tension. We placed reinforcement sutures at the distal end. We also closed the mesenteric defect and oversewn omentum over the mesenteric defect as well, to prevent any recurrent internal hernia. At this point in time we irrigated out the abdomen with several liters of warm saline until all succinate was clear. There is no other intra-abdominal pathology. The bowel was viable, healthy and pink. The patient continued to improve clinically throughout the resection. I turned our attention towards closure. We closed the midline fascia with a single #1 loop PDS suture. We closed the skin with skin roverto and sterile dressing was applied. The patient was discontinued from anesthesia. The patient was taken to the PACU in stable condition. The patient tolerated the procedure well. No apparent complications. All counts were correct. I was present and scrubbed throughout the entire procedure. MD IVÁN Palm/MACHO /7:54 PM /11:46 PM
--- NOTE | 2017-09-06 02:43 | HHI.PR ---
Addendum to Inpatient Note Addendum Reason: Additional Documentation Additional Information Rapid response was called on this patient due to hypotension Discussed with patient's nurse, charge nurse at length. Patient was sent from PACU after her surgery to [address] [place] [address]. Patient was apparently hypotensive with blood pressures around 90s over the 50s in PACU with tachycardia around 110. She was given a total of 2 L normal saline bolus. Her primary surgeon was contacted and the surgeon has requested for car repossessor service initially. However when the nurse checked with the car repossessor, apparently this was a canceled request and patient was instead sent to the medical floors for further management. While on medical floor, patient was still hypotensive with blood pressure around 90s over 50s although she is asymptomatic. Finally rapid response was called because of these abnormal vitals. Chart reviewed. I have come to see patient at the bedside. Patient is awake, alert, oriented. She denies any dizziness/shortness of breath/chest pains. She reports of mild abdominal pain which is expected postop. She is noted to be on BRICK KILN BURNER. She does have an NG tube which was draining coffee-ground color emesis. She is noticed to be tachycardic around 110-120. Blood pressure was around 90/60's. She was already on her third liter of normal saline bolus. Patient denies any history of congestive heart failure to me. She denies any prior history of hypertension. She reports that her blood pressure in fact runs low. She weighs only about 55 kg. Of note, patient also mentions that her daughter is a physician. The daughter On exam, patient is tachycardic, regular rhythm, no murmur appreciated. Lungs are clear with no evidence of daniel failure. Diminished lung sounds due to poor inspiratory effort from abdominal pain. Abdomen is soft. Tenderness on mild palpation due to postop abdomen. Bowel sounds are present. Lower extremities did not reveal any calf asymmetry or edema. hypotensive prior to surgery as well mostly post op hypotension, received 2L bolus in pacu tachycardic at 110s- again, was so as well preop Impression: Sinus tachycardia Hypotension- etiology unclear. Likely multifactorial. Possible GI bleed/ possible septic shock septic shock/BRICK KILN BURNER induced Lower extremity crampiness/heaviness per patient report. Patient has been in hospital in and out of for past 10 days or so. Will rule out DVT. Hypokalemia Small bowel obstruction UTI Plan: Given another 1 L normal saline bolus i.e. third liter of bolus. Check for Hemoccult of the emesis. If there is Hemoccult positivity, to contact patient surgeon. Serial hemoglobin and hematocrit. Hold Lovenox. We'll check electrolytes. Replace as needed. DC BRICK KILN BURNER. Start on Protonix IV drip Patient is on Zosyn and Flagyl. We'll monitor fever trends and follow cultures. Would obtain ultrasound of lower extremities to rule out DVT. If there is no evidence of DVT, we'll restart SCD. Critical care time 35 minutes Shivam Mina MD Sep 06, 2017 02:43
[2017-09-06] MEDS ORDERED: SODIUM CHLOR 0.9% 1000 ML INJ 1,000 ML IV ONE (02:45)
[2017-09-06 04:12] LABS: AUTOMATED NEUTROPHIL # 11.8 TH/MM3 (1.8-7.7); BASOPHIL % 0.1 % (0.0-2.0); EOSINOPHIL % 0.1 % (0.0-4.0); HEMATOCRIT 30.3 % (35.0-46.0); LYMPH % 3.4 % (9.0-44.0); LYMPHOCYTE # 0.4 TH/MM3 (1.0-4.8); MEAN CELL VOLUME 93.1 FL (80.0-100.0); MEAN CORPUSCULAR HEMOGLOBIN 33.1 PG (27.0-34.0); MEAN CORPUSCULAR HGB CONC 35.6 % (32.0-36.0); MONO % 4.3 % (0.0-8.0); NEUT % 92.1 % (16.0-70.0); PLATELET COUNT 400 TH/MM3 (150-450); RED BLOOD COUNT 3.26 MIL/MM3 (4.00-5.30); RED CELL DISTRIBUTION WIDTH 13.5 % (11.6-17.2); WHITE BLOOD COUNT 12.8 TH/MM3 (4.0-11.0)
[2017-09-06 04:15] LABS: HEMO FLAGS AUTO DIFF
[2017-09-06] MEDS: PIPERACIL-TAZO 3.375 GM PREMIX 50 ML IV SCH ×4 (04:24→17:10)
--- NOTE | 2017-09-06 04:25 | RADRPT ---
EXAM DATE/TIME: 09/06/2017 03:03 [facility] COMPARISON: No previous studies available for comparison. INDICATIONS : Bilateral leg hotness. MEDICAL HISTORY : Gastroesophageal reflux disease. Osteoporosis. SURGICAL HISTORY : Tonsillectomy.Appendectomy. Hysterectomy. ENCOUNTER: Initial ACUITY: 1 day PAIN SCORE: 1/10 LOCATION: Bilateral legs. TECHNIQUE: Venous ultrasound of the left and right leg was performed from the inguinal ligament to the proximal calf. Real-time, color Doppler and spectral tracing, compression and augmentation techniques were us ed. FINDINGS: RIGHT LEG: There is normal compressibility of the deep venous system from the inguinal region to the proximal ca lf. No echogenic clot is seen in the lumen of the common femoral, femoral, popliteal, and posterior tibial veins. There is a normal response of the venous system to proximal and distal augmentation an d respiration. LEFT LEG: There is normal compressibility of the deep venous system from the inguinal region to the proximal ca lf. No echogenic clot is seen in the lumen of the common femoral, femoral, popliteal, and posterior tibial veins. There is a normal response of the venous system to proximal and distal augmentation an d respiration. CONCLUSION: No DVT in either lower extremity. Kiran Spicer MD on September 06, 2017 at 4:22 Board Certified Radiologist. This report was verified electronically.
[2017-09-06 04:55] LABS: BICARBONATE 29.9 MEQ/L (21.0-32.0); CALCIUM-PROTEIN CORRECTED 7.5 MG/DL (8.5-10.1); TOTAL BILIRUBIN ADULT 0.3 MG/DL (0.2-1.0)
[2017-09-06] MEDS: MORPHINE SULFATE 2 MG/ML INJ IV PRN ×3 (06:18→21:39)
[2017-09-06] MEDS ORDERED: CALCIUM GLUCONATE 10% 1 GM/10 ML VIAL IV PUSH ONE (06:30)
[2017-09-06] MEDS ORDERED: PANTOPRAZOLE INJ 80 MG in SODIUM CHLORIDE 0.9% INJ 35 ML IV ONE (07:45)
[2017-09-06] MEDS ORDERED: CALCIUM GLUCONATE INJ 1 GM in SODIUM CHLORIDE 0.9% INJ 100 ML IV ONE (08:00)
[2017-09-06 08:21] LABS: BANDS 55 % (0-6); NEUTROPHIL # MANUAL DIFF 11.8 TH/MM3 (1.8-7.7); PLATELET ESTIMATE SMEAR NORMAL (NORMAL); PLATELET MORPHOLOGY NORMAL (NORMAL); POLYS (SEG NEUTROPHILS) 37 % (16-70); SCAN/DIFF FINAL DIFF MANUAL; WBC DIFF SAMPLE 100
[2017-09-06 08:22] LABS: DOHLE BODIES PRESENT (NONE SEEN)
[2017-09-06] MEDS: DOCUSATE SODIUM 50 MG/SENNA 8.6 MG TAB PO SCH ×2 (08:44→21:00)
[2017-09-06] MEDS: POTASSIUM CHLOR 20 MEQ PREMIX 100 ML IV SCH ×2 (08:45→14:40)
[2017-09-06] MEDS: SODIUM CHLORIDE 0.9% FLUSH 10 ML FLUSH IV FLUSH SCH ×2 (08:45→21:40)
[2017-09-06] MEDS: SODIUM CHLOR 0.9% 1000 ML INJ 1,000 ML IV SCH ×2 (08:47→17:08)
[2017-09-06] MEDS ORDERED: POTASSIUM CHLOR 20 MEQ PREMIX 100 ML IV SCH ×2 (11:00)
[2017-09-06] MEDS ORDERED: CALCIUM GLUCONATE INJ 1 GM in SODIUM CHLORIDE 0.9% INJ 90 ML IV ONE (11:00)
[2017-09-06] MEDS: PANTOPRAZOLE INJ 80 MG in SODIUM CHLORIDE 0.9% INJ 100 ML IV SCH ×2 (11:05→21:39)
[2017-09-06 11:10] LABS: HEMATOCRIT 32.1 % (35.0-46.0); REVIEW FLAG FINAL
[2017-09-06 13:12] LABS: HEMATOCRIT 32.4 % (35.0-46.0); REVIEW FLAG FINAL
--- NOTE | 2017-09-06 17:14 | HHI.PR ---
Subjective Remarks Status post lysis of adhesions, right hemicolectomy with resection of distal ileum. Doing well postop. Less abdominal distention today. Objective Vital Signs Date Time Temp Pulse Resp B/P (MAP) Pulse Ox O2 Delivery O2 Flow Rate FiO2 09/06/17 16:02 98 21 09/06/17 16:00 96.9 120 16 96/53 (67) 94 09/06/17 12:22 99 Nasal Cannula 2.00 09/06/17 12:00 97.9 113 16 106/60 (75) 98 09/06/17 08:00 97.3 113 15 108/56 (73) 95 09/06/17 04:00 99.0 120 20 95/51 (66) 95 09/06/17 02:42 120 109/55 (73) 100 09/06/17 02:27 123 96/53 (67) 100 09/06/17 02:10 100.2 123 12 84/50 (61) 100 09/06/17 01:55 99 4.00 09/06/17 01:55 97.3 135 16 85/54 (64) 100 09/06/17 00:00 97.3 130 20 90/52 (65) 99 09/05/17 23:51 18 09/05/17 22:58 17 09/05/17 22:30 109 22 99/53 (68) 95 Nasal Cannula 4 09/05/17 22:00 104 22 98/54 (69) 95 Nasal Cannula 4 09/05/17 21:30 101 22 106/55 (72) 95 Nasal Cannula 4 09/05/17 21:00 09/05/17 21:00 104 22 91/59 (70) 96 Nasal Cannula 4 09/05/17 20:45 95 22 103/57 (72) 96 Nasal Cannula 4 09/05/17 20:16 94 20 93/55 (68) 96 Simple Mask 6 09/05/17 20:15 105/41 (62) 09/05/17 20:00 97.6 93 20 88/51 (63) 96 Simple Mask 6 I/O 09/05/17 09/05/17 09/05/17 09/06/17 09/06/17 09/06/17 07:00 15:00 23:00 07:00 15:00 23:00 Intake Total 1200 ml 1000 ml 4000 ml 748 ml 285 ml 100 ml Output Total 450 ml 200 ml 715 ml 700 ml Balance 750 ml 800 ml 3285 ml 48 ml 285 ml 100 ml Intake Oral 0 ml IV Total 1200 ml 1000 ml 748 ml 285 ml 100 ml Other 4000 ml Output Urine Total 200 ml 365 ml 500 ml Gastric Drainage Total 250 ml 200 ml 100 ml 200 ml Estimated Blood Loss 250 ml # Bowel Movements 0 Result Diagram: 09/06/17 1202 09/06/17 0333 Objective Remarks GENERAL: NAD, A&Ox3 HEAD: Normocephalic. NECK: Supple, trachea midline. No lymphadenopathy. EYES: No scleral icterus. No injection or drainage. CARDIOVASCULAR: Regular rate and rhythm without murmurs, gallops, or rubs. RESPIRATORY: Breath sounds equal bilaterally. No accessory muscle use. GASTROINTESTINAL: Distended, hypoactive bowel sounds, tender. MUSCULOSKELETAL: No cyanosis, or edema. SKIN: Warm and dry. NEURO: No focal neurological deficitis. A/P Problem List: (1) UTI (urinary tract infection) ICD Code: N39.0 - Urinary tract infection, site not specified (2) Small bowel obstruction ICD Code: K56.609 - Unspecified intestinal obstruction, unspecified as to partial versus complete obstruction Status: Acute (3) Systemic inflammatory response syndrome ICD Code: R65.10 - Systemic inflammatory response syndrome (SIRS) of non- infectious origin without acute organ dysfunction Assessment and Plan Assessment and Plan 62-year-old female admitted secondary to small bowel obstruction. Now status post lysis of adhesions and right hemicolectomy with resection of distal ileum. Small Bowel Obstruction Continue NG tube Surgeons following Pain treatments as needed Zofran as needed status post lysis of adhesions and right hemicolectomy with resection of distal ileum. Hypokalemia Replacement provided Continue to monitor potassium levels UTI Continue Zosyn DVT prophylaxis SCDs Trever Roper MD Sep 06, 2017 17:14
[2017-09-06] MEDS ORDERED: ENOXAPARIN SODIUM 30 MG/0.3 ML SYRINGE SQ SCH (19:00)
--- NOTE | 2017-09-06 19:06 | HHI.PR ---
Subjective Subjective Notes feels well, pain ok Objective Vitals/I&O Vital Signs Date Time Temp Pulse Resp B/P (MAP) Pulse Ox O2 Delivery O2 Flow Rate FiO2 09/06/17 16:02 98 21 09/06/17 16:00 96.9 120 16 96/53 (67) 09/06/17 12:22 Nasal Cannula 2.00 Labs Laboratory Tests Test 09/06/17 03:33 09/06/17 08:13 09/06/17 12:02 White Blood Count 12.8 Red Blood Count 3.26 Hemoglobin 10.8 10.8 10.9 Hematocrit 30.3 32.1 32.4 Mean Corpuscular Volume 93.1 Mean Corpuscular Hemoglobin 33.1 Mean Corpuscular Hemoglobin Concent 35.6 Red Cell Distribution Width 13.5 Platelet Count 400 Mean Platelet Volume 6.9 Neutrophils (%) (Auto) 92.1 Lymphocytes (%) (Auto) 3.4 Monocytes (%) (Auto) 4.3 Eosinophils (%) (Auto) 0.1 Basophils (%) (Auto) 0.1 Neutrophils # (Auto) 11.8 Lymphocytes # (Auto) 0.4 Monocytes # (Auto) 0.5 Eosinophils # (Auto) 0.0 Basophils # (Auto) 0.0 CBC Comment AUTO DIFF Differential Total Cells Counted 100 Neutrophils % (Manual) 37 Band Neutrophils % 55 Lymphocytes % 2 Monocytes % 6 Neutrophils # (Manual) 11.8 Differential Comment FINAL DIFF MANUAL Dohle Bodies PRESENT Platelet Estimate NORMAL Platelet Morphology Comment NORMAL Red Cell Morphology Comment NORMAL Blood Urea Nitrogen 35 Creatinine 1.21 Random Glucose 113 Total Protein 4.6 Albumin 1.8 Calcium Level 6.3 Alkaline Phosphatase 35 Aspartate Amino Transf (AST/SGOT) 33 Alanine Aminotransferase (ALT/SGPT) 33 Total Bilirubin 0.3 Sodium Level 145 Potassium Level 3.0 Chloride Level 105 Carbon Dioxide Level 29.9 Anion Gap 10 Estimat Glomerular Filtration Rate 45 Protein Corrected Calcium 7.5 Date/Time Source Procedure Growth Status 09/05/17 00:27 Blood Peripheral Aerobic Blood Culture - Preliminary NO GROWTH IN 1 DAY Resulted 09/05/17 00:27 Blood Peripheral Anaerobic Blood Culture - Preliminary NO GROWTH IN 1 DAY Resulted 09/06/17 03:30 Gastric Gastric Occult Blood - Final GASTROCCULT POSITIVE Complete 09/03/17 19:55 Urine Clean Catch Urine Culture - Final 50-100,000 CFU/ML MIXED GRAM POSITIVE... Complete Abdomen: Non-distended, Post-op tenderness A/P Assessment and Plan 62yo female with SBO/closed loop with gangrene/perforation, s/p exlap right viktor /SRB, stable. OOB await bowel function, keep NG pain ok Gee Bower MD Sep 06, 2017 19:06
[2017-09-06 19:13] LABS: HEMATOCRIT 30.4 % (35.0-46.0); REVIEW FLAG FINAL
[2017-09-06] MEDS ORDERED: ALPRAZolam 0.25 MG TAB PO ONE (20:45)
[2017-09-07] VITALS (7 sets, daily range): BP systolic 119–144; BP diastolic 62–67; PULSE 88–113; RESP 16–22; TEMP 97–100.5; O2SAT 91–97
[2017-09-07] MEDS: FLUCONAZOLE 400 MG PREMIX BAG 200 ML IV SCH ×2 (00:46→22:48)
[2017-09-07] MEDS: SODIUM CHLOR 0.9% 1000 ML INJ 1,000 ML IV SCH ×2 (02:00→12:00)
[2017-09-07] MEDS: PIPERACIL-TAZO 3.375 GM PREMIX 50 ML IV SCH ×5 (03:26→23:50)
[2017-09-07] MEDS: MORPHINE SULFATE 2 MG/ML INJ IV PRN ×4 (03:27→23:51)
[2017-09-07] MEDS: SODIUM CHLORIDE 0.9% FLUSH 10 ML FLUSH IV FLUSH SCH ×2 (08:53→20:09)
[2017-09-07] MEDS: PANTOPRAZOLE INJ 80 MG in SODIUM CHLORIDE 0.9% INJ 100 ML IV SCH ×2 (08:53→13:45)
[2017-09-07] MEDS: DOCUSATE SODIUM 50 MG/SENNA 8.6 MG TAB PO SCH ×2 (08:54→20:09)
[2017-09-07 09:03] LABS: AUTOMATED NEUTROPHIL # 12.4 TH/MM3 (1.8-7.7); BASOPHIL % 0.1 % (0.0-2.0); EOSINOPHIL % 0.2 % (0.0-4.0); HEMATOCRIT 28.3 % (35.0-46.0); LYMPH % 5.8 % (9.0-44.0); LYMPHOCYTE # 0.8 TH/MM3 (1.0-4.8); MEAN CELL VOLUME 95.7 FL (80.0-100.0); MEAN CORPUSCULAR HEMOGLOBIN 31.8 PG (27.0-34.0); MEAN CORPUSCULAR HGB CONC 33.2 % (32.0-36.0); NEUT % 86.9 % (16.0-70.0); PLATELET COUNT 446 TH/MM3 (150-450); RED BLOOD COUNT 2.96 MIL/MM3 (4.00-5.30); RED CELL DISTRIBUTION WIDTH 13.6 % (11.6-17.2); WHITE BLOOD COUNT 14.3 TH/MM3 (4.0-11.0)
[2017-09-07 09:12] LABS: HEMO FLAGS AUTO DIFF
[2017-09-07 09:37] LABS: ALKALINE PHOSPHATASE 62 U/L (45-117); ALT (GPT) 23 U/L (10-53); ANION GAP 8 MEQ/L (5-15); AST (GOT) 21 U/L (15-37); BICARBONATE 31.1 MEQ/L (21.0-32.0); BLOOD UREA NITROGEN 22 MG/DL (7-18); CHLORIDE 108 MEQ/L (98-107); GLOMERULAR FILTRATION RATE 82 ML/MIN (>89); MAGNESIUM 2.8 MG/DL (1.5-2.5); POTASSIUM 3.3 MEQ/L (3.5-5.1); SODIUM (NA) 147 MEQ/L (136-145); TOTAL BILIRUBIN ADULT 0.3 MG/DL (0.2-1.0)
[2017-09-07 10:07] LABS: BANDS 24 % (0-6); MYELOCYTES 3 % (0-0); NEUTROPHIL # MANUAL DIFF 13.2 TH/MM3 (1.8-7.7); PLATELET ESTIMATE SMEAR NORMAL (NORMAL); PLATELET MORPHOLOGY NORMAL (NORMAL); POLYS (SEG NEUTROPHILS) 65 % (16-70); SCAN/DIFF FINAL DIFF MANUAL; TOXIC GRANULATION 1+ (NORMAL); WBC DIFF SAMPLE 100
--- NOTE | 2017-09-07 15:18 | HHI.PR ---
Subjective Remarks Continued improvement postop. NG tube will remain for approximately 2 more days. Patient has no new complaints. Objective Vital Signs Date Time Temp Pulse Resp B/P (MAP) Pulse Ox O2 Delivery O2 Flow Rate FiO2 09/07/17 12:00 97.0 88 16 136/64 (88) 91 09/07/17 08:08 92 21 09/07/17 08:00 99.0 104 16 128/67 (87) 92 09/07/17 04:00 99.7 101 22 129/66 (87) 93 09/07/17 00:00 100.5 113 22 119/62 (81) 93 09/06/17 20:00 100.5 118 22 112/57 (75) 93 09/06/17 16:02 98 21 09/06/17 16:00 96.9 120 16 96/53 (67) 94 I/O 09/06/17 09/06/17 09/06/17 09/07/17 09/07/17 09/07/17 07:00 15:00 23:00 07:00 15:00 23:00 Intake Total 748 ml 285 ml 350 ml 250 ml 150 ml Output Total 700 ml 710 ml 1225 ml Balance 48 ml 285 ml -360 ml -975 ml 150 ml Intake Oral 0 ml 0 ml 0 ml IV Total 748 ml 285 ml 350 ml 250 ml 150 ml Output Urine Total 500 ml 700 ml 425 ml Gastric Drainage Total 200 ml 10 ml 800 ml # Bowel Movements 0 0 0 Result Diagram: 09/07/1758 09/07/17657 Objective Remarks GENERAL: NAD, A&Ox3 HEAD: Normocephalic. NECK: Supple, trachea midline. No lymphadenopathy. EYES: No scleral icterus. No injection or drainage. CARDIOVASCULAR: Regular rate and rhythm without murmurs, gallops, or rubs. RESPIRATORY: Breath sounds equal bilaterally. No accessory muscle use. GASTROINTESTINAL: Distended, hypoactive bowel sounds, tender. MUSCULOSKELETAL: No cyanosis, or edema. SKIN: Warm and dry. NEURO: No focal neurological deficitis. A/P Problem List: (1) UTI (urinary tract infection) ICD Code: N39.0 - Urinary tract infection, site not specified (2) Small bowel obstruction ICD Code: K56.609 - Unspecified intestinal obstruction, unspecified as to partial versus complete obstruction Status: Acute (3) Systemic inflammatory response syndrome ICD Code: R65.10 - Systemic inflammatory response syndrome (SIRS) of non- infectious origin without acute organ dysfunction Assessment and Plan Assessment and Plan 62-year-old female admitted secondary to small bowel obstruction. Now status post lysis of adhesions and right hemicolectomy with resection of distal ileum. Doing well postop. Continue to follow electrolytes and correct potassium as needed, as it has been low for the past 2 days. Small Bowel Obstruction Continue NG tube Surgeons following Pain treatments as needed Zofran as needed status post lysis of adhesions and right hemicolectomy with resection of distal ileum. Hypokalemia Replacement provided Continue to monitor potassium levels UTI Continue Zosyn DVT prophylaxis SCDs Trever Roper MD Sep 07, 2017 15:18
--- NOTE | 2017-09-07 23:34 | HHI.PR ---
Subjective Subjective Notes feels well, OOB Objective Vitals/I&O Vital Signs Date Time Temp Pulse Resp B/P (MAP) Pulse Ox O2 Delivery O2 Flow Rate FiO2 09/07/17 20:00 98.0 88 16 135/67 (89) 97 09/07/17 08:08 21 09/06/17 12:22 Nasal Cannula 2.00 Labs Laboratory Tests Test 09/07/17 06:58 White Blood Count 14.3 Red Blood Count 2.96 Hemoglobin 9.4 Hematocrit 28.3 Mean Corpuscular Volume 95.7 Mean Corpuscular Hemoglobin 31.8 Mean Corpuscular Hemoglobin Concent 33.2 Red Cell Distribution Width 13.6 Platelet Count 446 Mean Platelet Volume 6.8 Neutrophils (%) (Auto) 86.9 Lymphocytes (%) (Auto) 5.8 Monocytes (%) (Auto) 7.0 Eosinophils (%) (Auto) 0.2 Basophils (%) (Auto) 0.1 Neutrophils # (Auto) 12.4 Lymphocytes # (Auto) 0.8 Monocytes # (Auto) 1.0 Eosinophils # (Auto) 0.0 Basophils # (Auto) 0.0 CBC Comment AUTO DIFF Differential Total Cells Counted 100 Neutrophils % (Manual) 65 Band Neutrophils % 24 Lymphocytes % 4 Monocytes % 4 Neutrophils # (Manual) 13.2 Myelocytes 3 Differential Comment FINAL DIFF MANUAL Toxic Granulation 1+ Platelet Estimate NORMAL Platelet Morphology Comment NORMAL Blood Urea Nitrogen 22 Creatinine 0.72 Random Glucose 79 Total Protein 5.4 Albumin 1.8 Calcium Level 7.9 Phosphorus Level 1.4 Magnesium Level 2.8 Alkaline Phosphatase 62 Aspartate Amino Transf (AST/SGOT) 21 Alanine Aminotransferase (ALT/SGPT) 23 Total Bilirubin 0.3 Sodium Level 147 Potassium Level 3.3 Chloride Level 108 Carbon Dioxide Level 31.1 Anion Gap 8 Estimat Glomerular Filtration Rate 82 Date/Time Source Procedure Growth Status 09/05/17 00:27 Blood Peripheral Aerobic Blood Culture - Preliminary NO GROWTH IN 2 DAYS Resulted 09/05/17 00:27 Blood Peripheral Anaerobic Blood Culture - Preliminary NO GROWTH IN 2 DAYS Resulted 09/06/17 03:30 Gastric Gastric Occult Blood - Final GASTROCCULT POSITIVE Complete 09/03/17 19:55 Urine Clean Catch Urine Culture - Final 50-100,000 CFU/ML MIXED GRAM POSITIVE... Complete Abdomen: Non-distended, Post-op tenderness A/P Assessment and Plan 62yo female with SBO/closed loop with gangrene/perforation, s/p exlap right viktor /SRB, stable. OOB today DC rodriguez in AM replete lytes await bowel function Gee Bower MD Sep 07, 2017 23:34
[2017-09-08] VITALS (7 sets, daily range): BP systolic 133–147; BP diastolic 69–77; PULSE 75–86; RESP 16–18; TEMP 97.9–99.7; O2SAT 92–94
[2017-09-08] MEDS: PANTOPRAZOLE INJ 80 MG in SODIUM CHLORIDE 0.9% INJ 100 ML IV SCH ×3 (00:29→23:03)
[2017-09-08] MEDS: D5-1/2 NS + KCL 20 MEQ INJ 1,000 ML IV SCH ×3 (01:57→23:03)
[2017-09-08] MEDS ORDERED: POTASSIUM PHOSPHATE INJ 15 MMOL in SODIUM CHLORIDE 0.9% INJ 150 ML IV ONE (02:00)
[2017-09-08] MEDS: PIPERACIL-TAZO 3.375 GM PREMIX 50 ML IV SCH ×6 (05:52→23:03)
[2017-09-08 05:59] LABS: AUTOMATED NEUTROPHIL # 7.5 TH/MM3 (1.8-7.7); BASOPHIL % 0.2 % (0.0-2.0); EOSINOPHIL # 0.1 TH/MM3 (0-0.4); EOSINOPHIL % 1.2 % (0.0-4.0); HEMATOCRIT 25.2 % (35.0-46.0); LYMPH % 9.9 % (9.0-44.0); LYMPHOCYTE # 0.9 TH/MM3 (1.0-4.8); MEAN CELL VOLUME 94.7 FL (80.0-100.0); MEAN CORPUSCULAR HEMOGLOBIN 32.3 PG (27.0-34.0); MEAN CORPUSCULAR HGB CONC 34.1 % (32.0-36.0); MONO % 8.5 % (0.0-8.0); NEUT % 80.2 % (16.0-70.0); PLATELET COUNT 421 TH/MM3 (150-450); RED BLOOD COUNT 2.67 MIL/MM3 (4.00-5.30); RED CELL DISTRIBUTION WIDTH 14.3 % (11.6-17.2); WHITE BLOOD COUNT 9.4 TH/MM3 (4.0-11.0)
[2017-09-08 06:16] LABS: HEMO FLAGS AUTO DIFF
[2017-09-08 06:27] LABS: BICARBONATE 26.1 MEQ/L (21.0-32.0); CALCIUM-PROTEIN CORRECTED 8.4 MG/DL (8.5-10.1); POTASSIUM 3.8 MEQ/L (3.5-5.1); TOTAL BILIRUBIN ADULT 0.2 MG/DL (0.2-1.0)
[2017-09-08 08:44] LABS: BANDS 10 % (0-6); EOSINOPHILS 1 % (0-4); METAMYELOCYTES 1 % (0-1); MYELOCYTES 2 % (0-0); NEUTROPHIL # MANUAL DIFF 8.3 TH/MM3 (1.8-7.7); POLYS (SEG NEUTROPHILS) 75 % (16-70); WBC DIFF SAMPLE 100
[2017-09-08] MEDS ORDERED: CALCIUM GLUCONATE INJ 1 GM in SODIUM CHLORIDE 0.9% INJ 90 ML IV ONE (08:45)
[2017-09-08 08:46] LABS: PLATELET ESTIMATE SMEAR NORMAL (NORMAL); PLATELET MORPHOLOGY NORMAL (NORMAL); SCAN/DIFF FINAL DIFF MANUAL; TOXIC GRANULATION 1+ (NORMAL)
[2017-09-08] MEDS ORDERED: POTASSIUM CHLOR 20 MEQ PREMIX 100 ML IV SCH (09:00)
[2017-09-08] MEDS: SODIUM CHLORIDE 0.9% FLUSH 10 ML FLUSH IV FLUSH SCH ×2 (09:48→23:03)
[2017-09-08] MEDS: MORPHINE SULFATE 2 MG/ML INJ IV PRN ×3 (11:20→23:03)
--- NOTE | 2017-09-08 18:10 | HHI.PR ---
Subjective Remarks NG tube remains in place. Patient says she feels fatigued today but has no complaints of lack of pain control, nausea, or vomiting. No diarrhea. Some flatulence present. Objective Vital Signs Date Time Temp Pulse Resp B/P (MAP) Pulse Ox O2 Delivery O2 Flow Rate FiO2 09/08/17 16:00 99.0 76 16 147/69 (95) 94 09/08/17 12:00 97.9 75 17 143/70 (94) 92 09/08/17 08:00 98.8 82 17 142/71 (94) 94 09/08/17 07:56 92 21 09/08/17 00:24 99.7 86 16 133/73 (93) 94 09/07/17 20:44 21 09/07/17 20:00 98.0 88 16 135/67 (89) 97 I/O 09/07/17 09/07/17 09/07/17 09/08/17 09/08/17 09/08/17 07:00 15:00 23:00 07:00 15:00 23:00 Intake Total 250 ml 200 ml 755 ml 1350 ml Output Total 1225 ml 1800 ml 1700 ml Balance -975 ml 200 ml -1045 ml -1700 ml 1350 ml Intake Oral 0 ml 0 ml IV Total 250 ml 200 ml 755 ml 1350 ml Output Urine Total 425 ml 400 ml 1700 ml Gastric Drainage Total 800 ml 1400 ml # Bowel Movements 0 0 Result Diagram: 09/08/179 09/08/17 045 Objective Remarks GENERAL: NAD, A&Ox3 HEAD: Normocephalic. NECK: Supple, trachea midline. No lymphadenopathy. EYES: No scleral icterus. No injection or drainage. CARDIOVASCULAR: Regular rate and rhythm without murmurs, gallops, or rubs. RESPIRATORY: Breath sounds equal bilaterally. No accessory muscle use. GASTROINTESTINAL: Distended, hypoactive bowel sounds, tender. MUSCULOSKELETAL: No cyanosis, or edema. SKIN: Warm and dry. NEURO: No focal neurological deficitis. A/P Problem List: (1) UTI (urinary tract infection) ICD Code: N39.0 - Urinary tract infection, site not specified (2) Small bowel obstruction ICD Code: K56.609 - Unspecified intestinal obstruction, unspecified as to partial versus complete obstruction Status: Acute (3) Systemic inflammatory response syndrome ICD Code: R65.10 - Systemic inflammatory response syndrome (SIRS) of non- infectious origin without acute organ dysfunction Assessment and Plan Assessment and Plan 62-year-old female admitted secondary to small bowel obstruction. Now status post lysis of adhesions and right hemicolectomy with resection of distal ileum. Improved stability of electrolytes. Continues to do well postop. No new complaints from the patient. Small Bowel Obstruction Small bowel and colon necrosis Gangrene of small bowel and colon Continue NG tube Surgeons following Pain treatments as needed Zofran as needed status post lysis of adhesions and right hemicolectomy with resection of distal ileum. Hypokalemia Replacement provided Continue to monitor potassium levels UTI Continue Zosyn DVT prophylaxis SCDs Trever Roper MD Sep 08, 2017 18:10
--- NOTE | 2017-09-08 19:27 | HHI.PR ---
Subjective Subjective Notes feels better, no NV Objective Vitals/I&O Vital Signs Date Time Temp Pulse Resp B/P (MAP) Pulse Ox O2 Delivery O2 Flow Rate FiO2 09/08/17 18:08 94 21 09/08/17 16:00 99.0 76 16 147/69 (95) 09/06/17 12:22 Nasal Cannula 2.00 Labs Laboratory Tests Test 09/08/17 04:59 White Blood Count 9.4 Red Blood Count 2.67 Hemoglobin 8.6 Hematocrit 25.2 Mean Corpuscular Volume 94.7 Mean Corpuscular Hemoglobin 32.3 Mean Corpuscular Hemoglobin Concent 34.1 Red Cell Distribution Width 14.3 Platelet Count 421 Mean Platelet Volume 6.8 Neutrophils (%) (Auto) 80.2 Lymphocytes (%) (Auto) 9.9 Monocytes (%) (Auto) 8.5 Eosinophils (%) (Auto) 1.2 Basophils (%) (Auto) 0.2 Neutrophils # (Auto) 7.5 Lymphocytes # (Auto) 0.9 Monocytes # (Auto) 0.8 Eosinophils # (Auto) 0.1 Basophils # (Auto) 0.0 CBC Comment AUTO DIFF Differential Total Cells Counted 100 Neutrophils % (Manual) 75 Band Neutrophils % 10 Lymphocytes % 8 Monocytes % 3 Eosinophils % 1 Neutrophils # (Manual) 8.3 Metamyelocytes 1 Myelocytes 2 Differential Comment FINAL DIFF MANUAL Atypical Lymphocytes Toxic Granulation 1+ Platelet Estimate NORMAL Platelet Morphology Comment NORMAL Blood Urea Nitrogen 18 Creatinine 0.53 Random Glucose 103 Total Protein 5.3 Albumin 1.6 Calcium Level 7.4 Alkaline Phosphatase 54 Aspartate Amino Transf (AST/SGOT) 18 Alanine Aminotransferase (ALT/SGPT) 18 Total Bilirubin 0.2 Sodium Level 148 Potassium Level 3.8 Chloride Level 113 Carbon Dioxide Level 26.1 Anion Gap 9 Estimat Glomerular Filtration Rate 117 Protein Corrected Calcium 8.4 Date/Time Source Procedure Growth Status 09/05/17 00:27 Blood Peripheral Aerobic Blood Culture - Preliminary NO GROWTH IN 3 DAYS Resulted 09/05/17 00:27 Blood Peripheral Anaerobic Blood Culture - Preliminary NO GROWTH IN 3 DAYS Resulted 09/06/17 03:30 Gastric Gastric Occult Blood - Final GASTROCCULT POSITIVE Complete 09/03/17 19:55 Urine Clean Catch Urine Culture - Final 50-100,000 CFU/ML MIXED GRAM POSITIVE... Complete Cardiovascular: Regular Abdomen: Non-distended, Non-tender, Post-op tenderness A/P Assessment and Plan 62yo female with SBO/closed loop with gangrene/perforation, s/p exlap right viktor /SRB, stable. DC NG, ok for water continue OOB Gee Bower MD Sep 08, 2017 19:27
[2017-09-09] VITALS (7 sets, daily range): BP systolic 127–152; BP diastolic 74–85; PULSE 77–89; RESP 17–20; TEMP 98.2–100.2; O2SAT 93–97
[2017-09-09] MEDS: PANTOPRAZOLE INJ 80 MG in SODIUM CHLORIDE 0.9% INJ 100 ML IV SCH ×3 (05:21→23:36)
[2017-09-09] MEDS: PIPERACIL-TAZO 3.375 GM PREMIX 50 ML IV SCH ×4 (05:21→23:36)
[2017-09-09] MEDS: MORPHINE SULFATE 2 MG/ML INJ IV PRN ×5 (05:25→23:44)
[2017-09-09 07:46] LABS: AUTOMATED NEUTROPHIL # 5.1 TH/MM3 (1.8-7.7); BASOPHIL % 0.5 % (0.0-2.0); EOSINOPHIL # 0.2 TH/MM3 (0-0.4); EOSINOPHIL % 3.4 % (0.0-4.0); HEMATOCRIT 26.5 % (35.0-46.0); LYMPH % 9.7 % (9.0-44.0); LYMPHOCYTE # 0.7 TH/MM3 (1.0-4.8); MEAN CELL VOLUME 94.8 FL (80.0-100.0); MEAN CORPUSCULAR HEMOGLOBIN 31.8 PG (27.0-34.0); MEAN CORPUSCULAR HGB CONC 33.6 % (32.0-36.0); NEUT % 74.4 % (16.0-70.0); PLATELET COUNT 449 TH/MM3 (150-450); RED BLOOD COUNT 2.79 MIL/MM3 (4.00-5.30); RED CELL DISTRIBUTION WIDTH 13.4 % (11.6-17.2); WHITE BLOOD COUNT 6.8 TH/MM3 (4.0-11.0)
[2017-09-09 08:05] LABS: HEMO FLAGS AUTO DIFF
[2017-09-09 08:20] LABS: ALKALINE PHOSPHATASE 65 U/L (45-117); ALT (GPT) 18 U/L (10-53); ANION GAP 6 MEQ/L (5-15); AST (GOT) 21 U/L (15-37); BICARBONATE 24.6 MEQ/L (21.0-32.0); BLOOD UREA NITROGEN 14 MG/DL (7-18); CHLORIDE 110 MEQ/L (98-107); GLOMERULAR FILTRATION RATE 119 ML/MIN (>89); MAGNESIUM 2.1 MG/DL (1.5-2.5); POTASSIUM 3.7 MEQ/L (3.5-5.1); SODIUM (NA) 141 MEQ/L (136-145); TOTAL BILIRUBIN ADULT 0.3 MG/DL (0.2-1.0)
[2017-09-09] MEDS: SODIUM CHLORIDE 0.9% FLUSH 10 ML FLUSH IV FLUSH SCH ×2 (09:00→20:43)
[2017-09-09 09:54] LABS: BANDS 7 % (0-6); CORRECTED NUCLEATED RBC 1 /100 WBC (0-0); EOSINOPHILS 4 % (0-4); METAMYELOCYTES 2 % (0-1); MYELOCYTES 6 % (0-0); PLASMA CELLS 1 % (0-0); WBC DIFF SAMPLE 100
[2017-09-09 09:57] LABS: BLASTS 1 % (0-0); NEUTROPHIL # MANUAL DIFF 5.2 TH/MM3 (1.8-7.7); POLYS (SEG NEUTROPHILS) 62 % (16-70)
[2017-09-09 09:58] LABS: PLATELET ESTIMATE SMEAR HIGH (NORMAL); PLATELET MORPHOLOGY NORMAL (NORMAL); SCAN/DIFF FINAL DIFF MANUAL
[2017-09-09] MEDS: D5-1/2 NS + KCL 20 MEQ INJ 1,000 ML IV SCH (11:45)
--- NOTE | 2017-09-09 13:38 | HHI.PR ---
Subjective Subjective Notes feels well today , no flatus or BM, no NV Objective Vitals/I&O Vital Signs Date Time Temp Pulse Resp B/P (MAP) Pulse Ox O2 Delivery O2 Flow Rate FiO2 09/09/17 12:00 99.0 84 17 141/75 (97) 96 09/08/17 18:08 21 09/06/17 12:22 Nasal Cannula 2.00 Labs Laboratory Tests Test 09/09/17 06:43 White Blood Count 6.8 Red Blood Count 2.79 Hemoglobin 8.9 Hematocrit 26.5 Mean Corpuscular Volume 94.8 Mean Corpuscular Hemoglobin 31.8 Mean Corpuscular Hemoglobin Concent 33.6 Red Cell Distribution Width 13.4 Platelet Count 449 Mean Platelet Volume 7.1 Neutrophils (%) (Auto) 74.4 Lymphocytes (%) (Auto) 9.7 Monocytes (%) (Auto) 12.0 Eosinophils (%) (Auto) 3.4 Basophils (%) (Auto) 0.5 Neutrophils # (Auto) 5.1 Lymphocytes # (Auto) 0.7 Monocytes # (Auto) 0.8 Eosinophils # (Auto) 0.2 Basophils # (Auto) 0.0 CBC Comment AUTO DIFF Differential Total Cells Counted 100 Neutrophils % (Manual) 62 Band Neutrophils % 7 Lymphocytes % 8 Monocytes % 9 Eosinophils % 4 Neutrophils # (Manual) 5.2 Metamyelocytes 2 Myelocytes 6 Nucleated Red Blood Cells 1 Differential Comment FINAL DIFF MANUAL Blastocytes 1 Plasma Cells 1 Platelet Estimate HIGH Platelet Morphology Comment NORMAL Blood Urea Nitrogen 14 Creatinine 0.52 Random Glucose 116 Total Protein 5.5 Albumin 1.8 Calcium Level 7.7 Phosphorus Level 2.1 Magnesium Level 2.1 Alkaline Phosphatase 65 Aspartate Amino Transf (AST/SGOT) 21 Alanine Aminotransferase (ALT/SGPT) 18 Total Bilirubin 0.3 Sodium Level 141 Potassium Level 3.7 Chloride Level 110 Carbon Dioxide Level 24.6 Anion Gap 6 Estimat Glomerular Filtration Rate 119 Date/Time Source Procedure Growth Status 09/05/17 00:27 Blood Peripheral Aerobic Blood Culture - Preliminary NO GROWTH IN 4 DAYS Resulted 09/05/17 00:27 Blood Peripheral Anaerobic Blood Culture - Preliminary NO GROWTH IN 4 DAYS Resulted 09/06/17 03:30 Gastric Gastric Occult Blood - Final GASTROCCULT POSITIVE Complete 09/03/17 19:55 Urine Clean Catch Urine Culture - Final 50-100,000 CFU/ML MIXED GRAM POSITIVE... Complete Abdomen: Non-distended, Post-op tenderness Narrative Exam clean, intact A/P Assessment and Plan 62yo female with SBO/closed loop with gangrene/perforation, s/p exlap right viktor /SRB, stable. ok for clears continue OOB Gee Bower MD Sep 09, 2017 13:38
--- NOTE | 2017-09-09 14:27 | HHI.PR ---
Subjective Remarks NG tube has been removed overnight. Patient is feeling well. Active bowel sounds are present. She's tolerated ice chips and water sips overnight. Objective Vital Signs Date Time Temp Pulse Resp B/P (MAP) Pulse Ox O2 Delivery O2 Flow Rate FiO2 09/09/17 12:00 99.0 84 17 141/75 (97) 96 09/09/17 08:00 98.2 77 17 141/74 (96) 97 09/09/17 04:49 98.8 09/09/17 00:08 99.7 89 18 152/85 (107) 93 09/08/17 20:00 98.8 79 18 142/77 (98) 93 09/08/17 18:08 94 21 09/08/17 16:00 99.0 76 16 147/69 (95) 94 I/O 09/08/17 09/08/17 09/08/17 09/09/17 09/09/17 09/09/17 07:00 15:00 23:00 07:00 15:00 23:00 Intake Total 1350 ml 0 ml 50 ml 208 ml Output Total 1700 ml 400 ml 500 ml Balance -1700 ml 1350 ml -400 ml -450 ml 208 ml Intake Oral 0 ml IV Total 1350 ml 50 ml 208 ml Output Urine Total 1700 ml 400 ml 500 ml # Bowel Movements 0 Result Diagram: 09/09/17 0643 09/09/17 0643 Objective Remarks GENERAL: NAD, A&Ox3 HEAD: Normocephalic. NECK: Supple, trachea midline. No lymphadenopathy. EYES: No scleral icterus. No injection or drainage. CARDIOVASCULAR: Regular rate and rhythm without murmurs, gallops, or rubs. RESPIRATORY: Breath sounds equal bilaterally. No accessory muscle use. GASTROINTESTINAL: Distended, hypoactive bowel sounds, tender. MUSCULOSKELETAL: No cyanosis, or edema. SKIN: Warm and dry. NEURO: No focal neurological deficitis. A/P Problem List: (1) UTI (urinary tract infection) ICD Code: N39.0 - Urinary tract infection, site not specified (2) Small bowel obstruction ICD Code: K56.609 - Unspecified intestinal obstruction, unspecified as to partial versus complete obstruction Status: Acute (3) Systemic inflammatory response syndrome ICD Code: R65.10 - Systemic inflammatory response syndrome (SIRS) of non- infectious origin without acute organ dysfunction Assessment and Plan Assessment and Plan 62-year-old female admitted secondary to small bowel obstruction. Now status post lysis of adhesions and right hemicolectomy with resection of distal ileum. Doing well postop. Small Bowel Obstruction Small bowel and colon necrosis Gangrene of small bowel and colon NG tube discontinued Surgeons following Pain treatments as needed Zofran as needed status post lysis of adhesions and right hemicolectomy with resection of distal ileum. Diet increased to clear liquids Hypokalemia Replacement provided Continue to monitor potassium levels UTI Continue Zosyn DVT prophylaxis SCDs Trever Roper MD Sep 09, 2017 14:27
[2017-09-10] VITALS: BP 130/70; PULSE 87; RESP 20; TEMP 99.6; O2SAT 95
[2017-09-10 04:00] VITALS: BP 134/76; PULSE 87; RESP 20; TEMP 97; O2SAT 94
[2017-09-10] MEDS: PIPERACIL-TAZO 3.375 GM PREMIX 50 ML IV SCH ×3 (05:44→18:05)
[2017-09-10 07:46] LABS: AUTOMATED NEUTROPHIL # 7.2 TH/MM3 (1.8-7.7); BASOPHIL % 0.3 % (0.0-2.0); EOSINOPHIL # 0.2 TH/MM3 (0-0.4); HEMATOCRIT 28.4 % (35.0-46.0); LYMPH % 7.2 % (9.0-44.0); LYMPHOCYTE # 0.7 TH/MM3 (1.0-4.8); MEAN CELL VOLUME 94.4 FL (80.0-100.0); MEAN CORPUSCULAR HEMOGLOBIN 32.3 PG (27.0-34.0); MEAN CORPUSCULAR HGB CONC 34.2 % (32.0-36.0); MONO % 10.8 % (0.0-8.0); NEUT % 79.7 % (16.0-70.0); PLATELET COUNT 440 TH/MM3 (150-450); RED BLOOD COUNT 3.01 MIL/MM3 (4.00-5.30); RED CELL DISTRIBUTION WIDTH 13.5 % (11.6-17.2); WHITE BLOOD COUNT 9.1 TH/MM3 (4.0-11.0)
[2017-09-10] MEDS: SODIUM CHLORIDE 0.9% FLUSH 10 ML FLUSH IV FLUSH SCH ×2 (07:52→19:43)
[2017-09-10] MEDS: MORPHINE SULFATE 2 MG/ML INJ IV PRN ×2 (07:52→22:00)
[2017-09-10 07:56] LABS: HEMO FLAGS AUTO DIFF
[2017-09-10 08:00] VITALS: BP 135/74; PULSE 86; RESP 17; TEMP 99.6; O2SAT 94
[2017-09-10 08:18] LABS: ANION GAP 10 MEQ/L (5-15); AST (GOT) 18 U/L (15-37); BLOOD UREA NITROGEN 10 MG/DL (7-18); CHLORIDE 105 MEQ/L (98-107); GLOMERULAR FILTRATION RATE 153 ML/MIN (>89); MAGNESIUM 1.9 MG/DL (1.5-2.5); POTASSIUM 3.9 MEQ/L (3.5-5.1); SODIUM (NA) 139 MEQ/L (136-145)
[2017-09-10 08:19] LABS: ALT (GPT) 15 U/L (10-53)
[2017-09-10 08:22] LABS: ALKALINE PHOSPHATASE 44 U/L (45-117); TOTAL BILIRUBIN ADULT 0.4 MG/DL (0.2-1.0)
[2017-09-10 10:11] LABS: BANDS 14 % (0-6); BLASTS 1 % (0-0); EOSINOPHILS 4 % (0-4); METAMYELOCYTES 5 % (0-1); NEUTROPHIL # MANUAL DIFF 7.4 TH/MM3 (1.8-7.7); POLYS (SEG NEUTROPHILS) 62 % (16-70); WBC DIFF SAMPLE 100
[2017-09-10 10:12] LABS: PLATELET ESTIMATE SMEAR NORMAL (NORMAL); PLATELET MORPHOLOGY NORMAL (NORMAL); SCAN/DIFF FINAL DIFF MANUAL
[2017-09-10 12:00] VITALS: BP 151/78; PULSE 83; RESP 17; TEMP 98.6; O2SAT 97
--- NOTE | 2017-09-10 13:07 | HHI.PR ---
cc: Gertrudis Heart MD Subjective Subjective Notes DAILY PROGRESS NOTE FOR SURGICAL ATTENDING, DR. GERTRUDIS HEART Patient thinks he may be ready to go home on Monday depending on her diet Objective Vitals/I&O Vital Signs Date Time Temp Pulse Resp B/P (MAP) Pulse Ox O2 Delivery O2 Flow Rate FiO2 09/10/17 12:00 98.6 83 17 151/78 (102) 97 09/09/17 09:40 21 09/06/17 12:22 Nasal Cannula 2.00 Labs Laboratory Tests Test 09/10/17 06:50 White Blood Count 9.1 Red Blood Count 3.01 Hemoglobin 9.7 Hematocrit 28.4 Mean Corpuscular Volume 94.4 Mean Corpuscular Hemoglobin 32.3 Mean Corpuscular Hemoglobin Concent 34.2 Red Cell Distribution Width 13.5 Platelet Count 440 Mean Platelet Volume 6.9 Neutrophils (%) (Auto) 79.7 Lymphocytes (%) (Auto) 7.2 Monocytes (%) (Auto) 10.8 Eosinophils (%) (Auto) 2.0 Basophils (%) (Auto) 0.3 Neutrophils # (Auto) 7.2 Lymphocytes # (Auto) 0.7 Monocytes # (Auto) 1.0 Eosinophils # (Auto) 0.2 Basophils # (Auto) 0.0 CBC Comment AUTO DIFF Differential Total Cells Counted 100 Neutrophils % (Manual) 62 Band Neutrophils % 14 Lymphocytes % 7 Monocytes % 7 Eosinophils % 4 Neutrophils # (Manual) 7.4 Metamyelocytes 5 Differential Comment FINAL DIFF MANUAL Blastocytes 1 Platelet Estimate NORMAL Platelet Morphology Comment NORMAL Red Cell Morphology Comment NORMAL Blood Urea Nitrogen 10 Creatinine 0.42 Random Glucose 94 Total Protein 5.6 Albumin 1.7 Calcium Level 7.9 Phosphorus Level 2.6 Magnesium Level 1.9 Alkaline Phosphatase 44 Aspartate Amino Transf (AST/SGOT) 18 Alanine Aminotransferase (ALT/SGPT) 15 Total Bilirubin 0.4 Sodium Level 139 Potassium Level 3.9 Chloride Level 105 Carbon Dioxide Level 24.0 Anion Gap 10 Estimat Glomerular Filtration Rate 153 Date/Time Source Procedure Growth Status 09/05/17 00:27 Blood Peripheral Aerobic Blood Culture - Final NO GROWTH IN 5 DAYS Complete 09/05/17 00:27 Blood Peripheral Anaerobic Blood Culture - Final NO GROWTH IN 5 DAYS Complete 09/06/17 03:30 Gastric Gastric Occult Blood - Final GASTROCCULT POSITIVE Complete 09/03/17 19:55 Urine Clean Catch Urine Culture - Final 50-100,000 CFU/ML MIXED GRAM POSITIVE... Complete Cardiovascular: Regular Abdomen: Post-op tenderness Narrative Exam Bandage dry Wound Wound : Wound Location: Abdomen Appearance: Clean & Dry Dressing: Dry A/P Problem List: (1) Status post exploratory laparotomy ICD Codes: Z98.890 - Other specified postprocedural states (2) Small bowel obstruction ICD Codes: K56.609 - Unspecified intestinal obstruction, unspecified as to partial versus complete obstruction Status: Resolved (3) Status post small bowel resection ICD Codes: Z90.49 - Acquired absence of other specified parts of digestive tract Assessment and Plan 62yo female with SBO/closed loop with gangrene/perforation, s/p exlap right viktor /SRB, stable. ok for soft diet continue OOB Anticipate discharge in next 24-48 hours Attending Statement NOTE FOR SURGICAL ATTENDING, DR. GERTRUDIS HEART I attest that I had a [id number] encounter with the patient on the same day, and personally performed and documented my assessment and findings in the medical record. The following services were provided during this hospital visit: Chart data review, vital sign assessments/reviewing monitor data Review of consultations notes if present. Medication orders/review and/or management Ordering and/or reviewing lab tests Ordering and/or interpreting/reviewing x-rays and/or diagnostic studies Care of the patient and discussion of the patient with the care team Documentation time To help prompt me to consider important information that might be impacting today's encounter and assessment, information from prior notes written by myself or my colleagues may have been "brought forward/copy and pasted" into today's note. Gertrudis Heart MD Sep 10, 2017 13:07
--- NOTE | 2017-09-10 15:22 | HHI.PR ---
Subjective Remarks Patient has been advanced to soft mechanical diet. She is doing well on this thus far. No new complaints. She has had a bowel movement, which was loose and not painful. Objective Vital Signs Date Time Temp Pulse Resp B/P (MAP) Pulse Ox O2 Delivery O2 Flow Rate FiO2 09/10/17 12:00 98.6 83 17 151/78 (102) 97 09/10/17 08:00 99.6 86 17 135/74 (94) 94 09/10/17 04:00 97.0 87 20 134/76 (95) 94 09/10/17 00:00 99.6 87 20 130/70 (90) 95 09/09/17 21:33 96 09/09/17 20:00 99.8 87 20 127/78 (94) 94 09/09/17 16:00 100.2 86 17 138/77 (97) 97 I/O 09/09/17 09/09/17 09/09/17 09/10/17 09/10/17 09/10/17 07:00 15:00 23:00 07:00 15:00 23:00 Intake Total 50 ml 268 ml 1070 ml 410 ml 167 ml Output Total 500 ml 350 ml 300 ml Balance -450 ml 268 ml 720 ml 110 ml 167 ml Intake Oral 1060 ml 360 ml IV Total 50 ml 268 ml 10 ml 50 ml 167 ml Output Urine Total 500 ml 350 ml 300 ml # Voids 8 # Bowel Movements 0 0 Result Diagram: 09/10/17 0650 09/10/17 0650 Objective Remarks GENERAL: NAD, A&Ox3 HEAD: Normocephalic. NECK: Supple, trachea midline. No lymphadenopathy. EYES: No scleral icterus. No injection or drainage. CARDIOVASCULAR: Regular rate and rhythm without murmurs, gallops, or rubs. RESPIRATORY: Breath sounds equal bilaterally. No accessory muscle use. GASTROINTESTINAL: Distended, hypoactive bowel sounds, tender. MUSCULOSKELETAL: No cyanosis, or edema. SKIN: Warm and dry. NEURO: No focal neurological deficitis. A/P Problem List: (1) UTI (urinary tract infection) ICD Code: N39.0 - Urinary tract infection, site not specified (2) Small bowel obstruction ICD Code: K56.609 - Unspecified intestinal obstruction, unspecified as to partial versus complete obstruction Status: Resolved (3) Systemic inflammatory response syndrome ICD Code: R65.10 - Systemic inflammatory response syndrome (SIRS) of non- infectious origin without acute organ dysfunction Assessment and Plan Assessment and Plan 62-year-old female admitted secondary to small bowel obstruction. Now status post lysis of adhesions and right hemicolectomy with resection of distal ileum. Doing well postop. Bowel movement has occurred today. Current diet is a soft mechanical diet. Continue to follow electrolytes. Small Bowel Obstruction Small bowel and colon necrosis Gangrene of small bowel and colon NG tube discontinued Surgeons following Pain treatments as needed Zofran as needed status post lysis of adhesions and right hemicolectomy with resection of distal ileum. Diet increased to clear liquids Hypokalemia Replacement provided Continue to monitor potassium levels UTI Continue Zosyn DVT prophylaxis SCDs Trever Roper MD Sep 10, 2017 15:22
[2017-09-10 16:00] VITALS: BP 138/78; PULSE 85; RESP 17; TEMP 98.6; O2SAT 97
[2017-09-10 20:00] VITALS: BP 142/75; PULSE 86; RESP 22; TEMP 99.1; O2SAT 96
[2017-09-10 23:26] LABS: AUTOMATED NEUTROPHIL # 7.2 TH/MM3 (1.8-7.7); BASOPHIL % 0.4 % (0.0-2.0); EOSINOPHIL # 0.2 TH/MM3 (0-0.4); EOSINOPHIL % 1.7 % (0.0-4.0); HEMATOCRIT 28.8 % (35.0-46.0); LYMPH % 7.9 % (9.0-44.0); LYMPHOCYTE # 0.7 TH/MM3 (1.0-4.8); MEAN CELL VOLUME 93.3 FL (80.0-100.0); MEAN CORPUSCULAR HGB CONC 34.3 % (32.0-36.0); MONO % 10.7 % (0.0-8.0); NEUT % 79.3 % (16.0-70.0); PLATELET COUNT 405 TH/MM3 (150-450); RED BLOOD COUNT 3.09 MIL/MM3 (4.00-5.30); RED CELL DISTRIBUTION WIDTH 13.8 % (11.6-17.2); WHITE BLOOD COUNT 9.1 TH/MM3 (4.0-11.0)
[2017-09-10 23:27] LABS: HEMO FLAGS AUTO DIFF
[2017-09-10 23:44] LABS: APTT (PATIENT) 30.3 SEC (24.3-30.1); INTERNATIONAL NORMALIZED RATIO 1.2 RATIO; PROTHROMBIN TIME - PATIENT 13.9 SEC (9.8-11.6)
[2017-09-10 23:55] LABS: TOTAL BILIRUBIN ADULT 0.3 MG/DL (0.2-1.0)
[2017-09-11] VITALS: BP 132/70; PULSE 82; RESP 22; TEMP 98.2; O2SAT 96
[2017-09-11] MEDS: PIPERACIL-TAZO 3.375 GM PREMIX 50 ML IV SCH ×3 (00:31→13:42)
[2017-09-11 01:56] LABS: BANDS 22 % (0-6); EOSINOPHILS 2 % (0-4); METAMYELOCYTES 4 % (0-1); NEUTROPHIL # MANUAL DIFF 7.4 TH/MM3 (1.8-7.7); PLATELET ESTIMATE SMEAR NORMAL (NORMAL); PLATELET MORPHOLOGY NORMAL (NORMAL); POLYS (SEG NEUTROPHILS) 55 % (16-70); SCAN/DIFF FINAL DIFF MANUAL; WBC DIFF SAMPLE 100
[2017-09-11 01:57] LABS: TOXIC GRANULATION 1+ (NORMAL)
[2017-09-11] MEDS: MORPHINE SULFATE 2 MG/ML INJ IV PRN ×3 (03:50→16:05)
[2017-09-11 06:13] LABS: HEMATOCRIT 27.8 % (35.0-46.0); MEAN CELL VOLUME 93.2 FL (80.0-100.0); MEAN CORPUSCULAR HEMOGLOBIN 32.4 PG (27.0-34.0); MEAN CORPUSCULAR HGB CONC 34.7 % (32.0-36.0); PLATELET COUNT 411 TH/MM3 (150-450); RED BLOOD COUNT 2.98 MIL/MM3 (4.00-5.30); RED CELL DISTRIBUTION WIDTH 13.7 % (11.6-17.2); WHITE BLOOD COUNT 8.8 TH/MM3 (4.0-11.0)
[2017-09-11 06:29] LABS: REVIEW FLAG FINAL
[2017-09-11 06:47] LABS: POTASSIUM 3.2 MEQ/L (3.5-5.1)
[2017-09-11 08:00] VITALS: BP 152/78; PULSE 94; RESP 17; TEMP 96.2; O2SAT 99
[2017-09-11] MEDS ORDERED: POTASSIUM CHLORIDE 20 MEQ CONTROLLED RELEASE TAB PO ONE (08:00)
[2017-09-11] MEDS: SODIUM CHLORIDE 0.9% FLUSH 10 ML FLUSH IV FLUSH SCH (09:05)
[2017-09-11] MEDS: SODIUM CHLORIDE 0.9% FLUSH 10 ML FLUSH IV FLUSH PRN ×3 (10:47→16:05)
[2017-09-11 12:00] VITALS: BP 128/71; PULSE 84; RESP 18; TEMP 99.2; O2SAT 97
--- NOTE | 2017-09-11 13:38 | HHI.PR ---
Subjective Subjective Notes Resting in bed Wants to go home today if okay with Dr. Bower Objective Vitals/I&O Vital Signs Date Time Temp Pulse Resp B/P (MAP) Pulse Ox O2 Delivery O2 Flow Rate FiO2 09/11/17 12:00 99.2 84 18 128/71 (90) 97 09/09/17 09:40 21 Labs Laboratory Tests Test 09/10/17 23:14 09/11/17 04:54 09/11/17 06:00 White Blood Count 9.1 8.8 Red Blood Count 3.09 2.98 Hemoglobin 9.9 9.6 Hematocrit 28.8 27.8 Mean Corpuscular Volume 93.3 93.2 Mean Corpuscular Hemoglobin 32.0 32.4 Mean Corpuscular Hemoglobin Concent 34.3 34.7 Red Cell Distribution Width 13.8 13.7 Platelet Count 405 411 Mean Platelet Volume 6.8 7.0 Neutrophils (%) (Auto) 79.3 Lymphocytes (%) (Auto) 7.9 Monocytes (%) (Auto) 10.7 Eosinophils (%) (Auto) 1.7 Basophils (%) (Auto) 0.4 Neutrophils # (Auto) 7.2 Lymphocytes # (Auto) 0.7 Monocytes # (Auto) 1.0 Eosinophils # (Auto) 0.2 Basophils # (Auto) 0.0 CBC Comment AUTO DIFF Differential Total Cells Counted 100 Neutrophils % (Manual) 55 Band Neutrophils % 22 Lymphocytes % 5 Monocytes % 12 Eosinophils % 2 Neutrophils # (Manual) 7.4 Metamyelocytes 4 Differential Comment FINAL DIFF MANUAL Atypical Lymphocytes Toxic Granulation 1+ Platelet Estimate NORMAL Platelet Morphology Comment NORMAL Red Cell Morphology Comment NORMAL Prothrombin Time 13.9 Prothromb Time International Ratio 1.2 Activated Partial Thromboplast Time 30.3 Creatinine 0.50 0.42 Estimat Glomerular Filtration Rate 125 153 Lactic Acid Level 0.9 Total Bilirubin 0.3 Blood Urea Nitrogen 8 Random Glucose 106 Calcium Level 7.5 Sodium Level 138 Potassium Level 3.2 Chloride Level 106 Carbon Dioxide Level 25.0 Anion Gap 7 Date/Time Source Procedure Growth Status 09/10/17 23:14 Blood Peripheral Aerobic Blood Culture - Preliminary NO GROWTH IN 1 DAY Resulted 09/10/17 23:14 Blood Peripheral Anaerobic Blood Culture - Preliminary NO GROWTH IN 1 DAY Resulted 09/06/17 03:30 Gastric Gastric Occult Blood - Final GASTROCCULT POSITIVE Complete 09/03/17 19:55 Urine Clean Catch Urine Culture - Final 50-100,000 CFU/ML MIXED GRAM POSITIVE... Complete Cardiovascular: Regular Lungs: Clear Abdomen: Other (midline incision with roverto; dressing removed and placed ) Extremities: No edema A/P Problem List: (1) Status post exploratory laparotomy ICD Codes: Z98.890 - Other specified postprocedural states (2) Small bowel obstruction ICD Codes: K56.609 - Unspecified intestinal obstruction, unspecified as to partial versus complete obstruction Status: Resolved (3) Status post small bowel resection ICD Codes: Z90.49 - Acquired absence of other specified parts of digestive tract Assessment and Plan 62 year old female s/p ex lap -Regular soft diet -DC IVF -OOB and mobilize -Abdominal binder -GS clear for DC; okay to shower -Follow up next week with Dr. Bower next week Jyoti Yu Sep 11, 2017 13:38
--- NOTE | 2017-09-11 15:33 | HHI.DS ---
Discharge Summary Admission Date Sep 03, 2017 at 21:42 Discharge Date: Sep 11, 2017 Admitting Diagnosis SMALL BOWEL OBSTRUCTION (1) Small bowel obstruction ICD Code: K56.609 - Unspecified intestinal obstruction, unspecified as to partial versus complete obstruction Status: Resolved (2) UTI (urinary tract infection) ICD Code: N39.0 - Urinary tract infection, site not specified Procedures Exploratory laparoscopy Brief History - From Admission Mrs. Elizabeth is a 62 y/o female with GERD and recent hospitalization for small bowel obstruction 08/26 - 08/31 who presented to the ED for evaluation of abdominal distention and nausea with vomiting starting at 5 PM on 09/03/2017. Abdomen/pelvis CT with IV contrast showed distal small bowel obstruction with slight increase in dilatation since August 26. Questionable closed-loop or internal hernia right lower quadrant. The patient is seen in her hospital room. She states that she was doing well following discharge and yesterday morning developed some abdominal distention and right upper quadrant pain. At 5 PM, she had a large amount of vomit to accompany her moderate abdominal distention and slight right upper quadrant discomfort. Having just suffered from small bowel obstruction, she recognizes symptoms and presented to the emergency room. She reports some accompanying shortness of breath related to the abdominal distention, denies chest pain, dizziness, dysuria, or hematuria. CBC/BMP: 09/11/17 0600 09/11/17 0454 Significant Findings Laboratory Tests Test 09/09/17 06:43 09/10/17 06:50 09/10/17 23:14 09/11/17 04:54 Red Blood Count 2.79 MIL/MM3 (4.00-5.30) 3.01 MIL/MM3 (4.00-5.30) 3.09 MIL/MM3 (4.00-5.30) Hemoglobin 8.9 GM/DL (11.6-15.3) 9.7 GM/DL (11.6-15.3) 9.9 GM/DL (11.6-15.3) Hematocrit 26.5 % (35.0-46.0) 28.4 % (35.0-46.0) 28.8 % (35.0-46.0) Neutrophils (%) (Auto) 74.4 % (16.0-70.0) 79.7 % (16.0-70.0) 79.3 % (16.0-70.0) Monocytes (%) (Auto) 12.0 % (0.0-8.0) 10.8 % (0.0-8.0) 10.7 % (0.0-8.0) Lymphocytes # (Auto) 0.7 TH/MM3 (1.0-4.8) 0.7 TH/MM3 (1.0-4.8) 0.7 TH/MM3 (1.0-4.8) Band Neutrophils % 7 % (0-6) 14 % (0-6) 22 % (0-6) Lymphocytes % 8 % (9-44) 7 % (9-44) 5 % (9-44) Monocytes % 9 % (0-8) 12 % (0-8) Metamyelocytes 2 % (0-1) 5 % (0-1) 4 % (0-1) Myelocytes 6 % (0-0) Nucleated Red Blood Cells 1 /100 WBC (0-0) Blastocytes 1 % (0-0) 1 % (0-0) Plasma Cells 1 % (0-0) Platelet Estimate HIGH (NORMAL) Random Glucose 116 MG/DL (74-106) Total Protein 5.5 GM/DL (6.4-8.2) 5.6 GM/DL (6.4-8.2) Albumin 1.8 GM/DL (3.4-5.0) 1.7 GM/DL (3.4-5.0) Calcium Level 7.7 MG/DL (8.5-10.1) 7.9 MG/DL (8.5-10.1) 7.5 MG/DL (8.5-10.1) Phosphorus Level 2.1 MG/DL (2.5-4.9) Chloride Level 110 MEQ/L (98-107) Mean Platelet Volume 6.9 FL (7.0-11.0) 6.8 FL (7.0-11.0) Lymphocytes (%) (Auto) 7.2 % (9.0-44.0) 7.9 % (9.0-44.0) Monocytes # (Auto) 1.0 TH/MM3 (0-0.9) 1.0 TH/MM3 (0-0.9) Creatinine 0.42 MG/DL (0.50-1.00) 0.42 MG/DL (0.50-1.00) Alkaline Phosphatase 44 U/L (45-117) Toxic Granulation 1+ (NORMAL) Prothrombin Time 13.9 SEC (9.8-11.6) Activated Partial Thromboplast Time 30.3 SEC (24.3-30.1) Potassium Level 3.2 MEQ/L (3.5-5.1) Test 09/11/17 06:00 Red Blood Count 2.98 MIL/MM3 (4.00-5.30) Hemoglobin 9.6 GM/DL (11.6-15.3) Hematocrit 27.8 % (35.0-46.0) PE at Discharge GENERAL: This is a well-nourished, well-developed patient, in no apparent distress. SKIN: Warm and dry. HEENT: Normocephalic. Pupils equal round and reactive. Nose without bleeding. Airway patent. NECK: Trachea midline. No JVD. Supple. CARDIOVASCULAR: Regular rate and rhythm without murmurs, gallops, or rubs. RESPIRATORY: Clear to auscultation. Breath sounds equal bilaterally. No wheezes , rales, or rhonchi. GASTROINTESTINAL: Abdomen mildly distended. Tenderness to palpate LLQ. Bowel Sounds heard LUQ, unable to hear on the right MUSCULOSKELETAL: Extremities without clubbing, cyanosis, or edema. NEUROLOGICAL: Awake and alert. Oriented to time, place, person. No focal neuro deficit. Moves all extremities. Normal speech. Hospital Course Patient admitted for small bowel obstruction small bowel: Necrosis gangrene of the small bowel, surgery consulted NG tube inserted status post lysis of adhesions and right hemicolectomy with resection of distal ileum, diet advanced by surgery, patient had UTI treated with Zosyn, cleared by specialist for discharge home. [id number] encounter performed with the patient on discharge day, as well as physical exam, summary of hospitalization course and postdischarge plan has been D/W the patient. D/W nurse D/W rifle case repairer. Discharge medications reviewed and printed and signed, post discharge follow up visit with PCP and other specialist as well as Brief hospital course and discharge summary has been placed. Pt Condition on Discharge: Fair Discharge Disposition: Discharge Home Discharge Time: > 30 minutes Discharge Instructions Follow up Referrals: Surgical - 1 Week with Gee Bower MD New Medications: Amoxicillin-Clavulanate (Augmentin) 875-125 Mg Tab 1 TAB PO BID for Infection for 5 Days, #10 TAB 0 Refills Continued Medications: Famotidine (Pepcid) 20 Mg Tab 20 MG PO BID, #60 TAB 0 Refills Hydroxychloroquine (Plaquenil) 200 Mg Tab 200 MG PO DAILY, #30 TAB 0 Refills Take with food Kimberly Soto MD Sep 11, 2017 15:32
[2017-09-11] MEDS ORDERED: AUGM875T3 PO (15:36)
[2017-09-11 16:00] VITALS: BP 144/70; PULSE 92; RESP 16; TEMP 98; O2SAT 99
== END 2017-09-11 17:02 | disposition home or self-care (01) | DRG 329 ==
LOC: PHED 18:23 → PHEDA 21:42 → N07B 09-04 00:36
PROVIDERS: ADMIT Hospitalist; ATTEND Hospitalist
PROC: 0DBB0ZZ Excision of Ileum, Open Approach (ICD-10-PCS; 2017-09-05)
PROC: 0DNB0ZZ Release Ileum, Open Approach (ICD-10-PCS; 2017-09-05)
PROC: 0DTF0ZZ Resection of Right Large Intestine, Open Approach (ICD-10-PCS; principal; 2017-09-05 17:03)
PROC: 0WJG4ZZ Inspection of Peritoneal Cavity, Percutaneous Endoscopic Approach (ICD-10-PCS; 2017-09-05 17:03)
DX: K56.50 Intestinal adhesions [bands], unspecified as to partial versus complete obstruction (principal); K63.1 Perforation of intestine (nontraumatic); K55.049 Acute infarction of large intestine, extent unspecified; K46.0 Unspecified abdominal hernia with obstruction, without gangrene; R65.10 Systemic inflammatory response syndrome (SIRS) of non-infectious origin without acute organ dysfunction; N39.0 Urinary tract infection, site not specified; K63.0 Abscess of intestine; K21.9 Gastro-esophageal reflux disease without esophagitis; M19.90 Unspecified osteoarthritis, unspecified site; E87.6 Hypokalemia; R00.0 Tachycardia, unspecified; I95.81 Postprocedural hypotension; Z87.891 Personal history of nicotine dependence
CPT/HCPCS: 43753; 74177; 80048; 80053; 81001; 82247; 82270; 82565; 82805; 83605; 83735; 84100; 85007; 85014; 85018; 85025; 85027; 85610; 85730; 86850; 86900; 86901; 87040; 87086; 88309; 93005; 93970; 94150; 96374; 96375; C9113; J0131; J0610; J1450; J2060; J2270; J2405; J2543; J3480; J7030; Q9967